=== PATIENT | female | born 1980 | race Caucasian/White ===

== ENCOUNTER 2021-04-10 13:29 | Emergency (ER) | payer OTHER, SELFPAY ==
[2021-04-10 13:46] VITALS: BP 144/78; PULSE 79; RESP 14; TEMP 36.6; O2SAT 98
--- NOTE | 2021-04-10 14:04 | ED.URI ---
HPI - URI/Sore Throat General Chief Complaint: Upper Respiratory Infection Stated Complaint: Chest Congestion Source: patient Mode of arrival: ambulatory Limitations: no limitations History of Present Illness HPI Narrative: Patient is a 41-year-old female who presents with upper respiratory infection x3+ weeks. Patient reports Covid tested 4 times, with PCR negative this afternoon. She reports cough and congestion. She reports prednisone times 5 days x 2. With little relief she denies shortness of breath or chest pain. She denies exposure to Covid. Reports son and mother tested for Covid earlier in the week and negative as well. Reports a history of asthma. MD elicited complaint: cough and nasal congestion Pertinent past history: pneumonia Related Data Home Medications Medication Instructions Recorded Confirmed spironolactone 50 mg PO DAILY 04/10/21 04/10/21 zonisamide 50 mg PO BID 04/10/21 04/10/21 Allergies Allergy/AdvReac Type Severity Reaction Status Date / Time amoxicillin Allergy Swelling Verified 04/10/21 13:58 of Lip/Tongue/Throat Penicillins Allergy Swelling Verified 04/10/21 13:58 of Lip/Tongue/Throat Review of Systems Review of Systems: CONSTITUTIONAL: Denies fever, chills, or sweats. EYES: Denies visual changes, redness, or discharge. ENT: Reports rhinorrhea, congestion, sore throat, or otalgia. CARDIOVASCULAR: Denies chest pain, palpitations, or edema. RESPIRATORY: Reports cough or dyspnea. GASTROINTESTINAL: Denies abdominal pain, nausea, vomiting, or diarrhea. GENITOURINARY: Denies dysuria or hematuria. SKIN: Denies rash or itching. MUSCULOSKELETAL: Denies back pain, joint pain, or myalgia. NEUROLOGIC: Reports headache, denies numbness, dizziness, or weakness. PSYCHIATRIC: Denies anxiety or depression. [facility] Past Medical History Medical History (Updated 04/10/21 @ 14:26 by VICENTE Bailey) Asthma Comments At the time of signature, I have reviewed and agree with nursing past medical, surgical, social, and family history unless otherwise noted. Please see nursing chart for further information. There is no relevant family history pertinent to the presenting complaint. Exam Narrative: GENERAL: Well-appearing, well-nourished, and in no acute distress. HEAD: Normocephalic, atraumatic. EYES: EOMI. No redness or drainage. Conjunctiva are normal. ENT: Mucous membranes pink and moist. Nares clear. No rhinorrhea. TMs normal bilaterally. Throat normal. Uvula midline. NECK: AROM. Supple. No lymphadenopathy. CHEST: No respiratory distress. Expiratory wheezes noted. HEART: Regular rate and rhythm. No murmur appreciated. Normal peripheral pulses. EXTREMITIES: Normal range of motion. No edema. SKIN: Warm, dry, no rash. NEURO: No focal deficits. Alert and oriented x3. Gait steady. PSYCH: Normal affect. No signs of depression or anxiety. Course Vital Signs Vital signs: Vital Signs Temperature 36.6 C 04/10/21 13:46 Pulse Rate 79 04/10/21 13:46 Respiratory Rate 14 04/10/21 13:46 Blood Pressure 144/78 H 04/10/21 13:46 Pulse Oximetry 98 04/10/21 13:46 Temperature 36.6 C 04/10/21 13:46 Pulse Rate 79 04/10/21 13:46 Respiratory Rate 14 04/10/21 13:46 Blood Pressure 144/78 H 04/10/21 13:46 Pulse Oximetry 98 04/10/21 13:46 Reviewed-patient is informed that they may have pre-hypertension or hypertension based on a blood pressure reading. I recommend the patient call the primary care provider listed on their discharge instructions or a physician of their choice this week to arrange follow-up for further evaluation of possible pre-hypertension or hypertension. MDM - URI/Sore Throat MDM Narrative Medical decision making narrative: Patient most likely has bronchitis at this time. Covid testing negative x4. Patient be started on antibiotics as well as inhaler. Discussed use of steroids, however, patient has recently been on steroids x2 manuel
[2021-04-10] MEDS: methylPREDNISolone SOD SUCC 125 MG VIAL IM (14:13)
== END 2021-04-10 14:42 | disposition home or self-care (01) ==
PROVIDERS: Emergency Provider Nurse Practitioner
DX: J40 Bronchitis, not specified as acute or chronic (principal); J06.9 Acute upper respiratory infection, unspecified; J45.909 Unspecified asthma, uncomplicated
CPT/HCPCS: 96372; 99213; G0463; J2930

== ENCOUNTER 2021-08-18 15:19 | Emergency (ER) | payer OTHER, SELFPAY ==
--- NOTE | ~2021-08-18 | XR_ITS ---
EXAMINATION: XR foot LT min 3V DATE: 08/18/2021 15:59 INDICATION: Left foot injury and pain. TECHNIQUE: 4 views of left foot were obtained. COMPARISON: None. FINDINGS: Bone alignment is normal. No fracture. There is mild osteoarthritis of first metatarsophala ngeal joint. IMPRESSION: 1. Mild osteoarthritis of first metatarsophalangeal joint. Reviewed, dictated and finalized at location A.
[2021-08-18 15:35] VITALS: BP 124/56; PULSE 77; RESP 16; TEMP 37.4; O2SAT 99
--- NOTE | 2021-08-18 15:43 | ED.LOWEXIN ---
HPI - Extremity Injury (Lower) General Chief Complaint: Extremity Injury, Lower Stated Complaint: left foot pain Time Seen by Provider: 08/18/21 16:03 Source: patient and RN notes reviewed Mode of arrival: ambulatory Limitations: no limitations History of Present Illness HPI Narrative: 41-year-old female presents concern for left foot pain. She reports pain, bump to the dorsal aspect of the foot, she reports heel pain. She reports pain is very bad in the morning or when she has not been on the foot for a while. She reports she may have twisted the foot but denies any significant injury. She reports pain is worse with weightbearing. She reports she has been using a sleeve, elevation with mild relief. MD complaint: foot injury Related Data Home Medications Medication Instructions Recorded Confirmed spironolactone 50 mg PO DAILY 04/10/21 08/18/21 zonisamide 50 mg PO BID 04/10/21 08/18/21 Allergies Allergy/AdvReac Type Severity Reaction Status Date / Time amoxicillin Allergy Swelling Verified 04/10/21 13:58 of Lip/Tongue/Throat clavulanic acid Allergy Swelling Verified 08/18/21 15:42 [From Augmentin] latex Allergy Rash Verified 08/18/21 15:45 Penicillins Allergy Swelling Verified 04/10/21 13:58 of Lip/Tongue/Throat shellfish derived Allergy Anaphylactic Verified 08/18/21 15:45 Shock walnuts Allergy Swelling Uncoded 08/18/21 15:45 of Lip/Tongue/Throat Review of Systems Review of Systems: CONSTITUTIONAL: Denies malaise, chills, sweats, or fever. SKIN: Denies rash or itching, open skin, laceration, abrasion, redness, warmth, swelling. MUSCULOSKELETAL: Reports left foot pain NEUROLOGIC: Denies numbness, weakness All systems reviewed & are unremarkable except as noted in HPI and below PMFSH Past Medical History Medical History (Updated 08/18/21 @ 16:13 by Janae Prather NP) Asthma Comments At time of signature, agree with nursing past medical, surgical, social and family history. There is no relevant family history pertinent to the presenting complaint Exam Narrative: GENERAL: Well-appearing, well-nourished, and in no acute distress. HEAD: Normocephalic, atraumatic. EYES: PERRLA, conjunctivae clear NECK: Supple. CHEST: Speaks in full sentences. No respiratory distress. HEART: Regular rate and rhythm. Normal and equal peripheral pulses. EXTREMITIES: Left foot, digits have normal strength and sensation, normal range of motion. No generalized edema or ecchymosis. Normal sensation with sensitivity to light touch and pain. Palpable tender soft nodule noted the dorsal aspect of the foot beneath digits 4 and 5. No open wounds, no skin tenting, no devitalized tissue or atrophy, no trophic changes, no obvious deformity, alignment normal, nearby joints and structures intact. Distal pulses palpable and equal bilaterally, skin warm, dry, pink. Capillary refill less than 3 seconds. SKIN: Warm, dry, no rash. NEURO: Alert and oriented x3. PSYCH: Normal mood and affect Course Course Emergency Course: Patient is aware of diagnosis, understands and agrees to treatment plan. Anticipatory guidance given. Patient agrees to follow-up as directed and is aware of reasons to seek care at the emergency department. Portions of this record may have been created with voice recognition software Level of Care: Express Care Visit Vital Signs Vital signs: Reviewed. MDM - Extremity Injury (Lower) MDM Narrative Medical decision making narrative: Patients pain is consistent with musculoskeletal etiology. No signs of neurological or vascular compromise on exam. Compartments and tissues are soft without signs of compartment syndrome. Pain is felt appropriate for further evaluation on an outpatient basis. Critical Care Time Critical Care Time Critical Care Time: No Discharge Plan Discharge Clinical Impression: Foot pain Qualifiers: Laterality: left Qualified Code(s): M79.672 - Pain in left
== END 2021-08-18 16:20 | disposition home or self-care (01) ==
PROVIDERS: Emergency Provider Nurse Practitioner; PCP Nurse Practitioner Family
DX: M79.672 Pain in left foot (principal); J45.909 Unspecified asthma, uncomplicated
CPT/HCPCS: 73630; 99213; G0463

== ENCOUNTER 2021-11-03 10:36 | Emergency (ER) | payer OTHER, SELFPAY ==
--- NOTE | 2021-11-03 10:41 | ED.URI ---
HPI - URI/Sore Throat General Chief Complaint: Upper Respiratory Infection Stated Complaint: asthma/bronchitis flair up Time Seen by Provider: 11/03/21 10:42 Source: patient and RN notes reviewed History of Present Illness HPI Narrative: Patient is a 41-year-old female who presents the urgent care with complaints of an asthma flare. Patient states that her asthma has been bad for the last week however the last day and a half she has been unable to control the coughing, wheezing and tightness. Patient denies of any chest pain. States that she does have a history of bronchitis. Patient has not taken any nebulizer since last night because she wanted us to see how bad she was . Patient has been using her inhaler more frequently than usual. Denies of any fevers, nausea, vomiting. States that she has had a slight runny nose but otherwise no other upper respiratory complaints. No acute distress noted. Patient aware of the plan of care. Some parts of this dictation were generated by voice recognition software and may contain typographical and/or grammatical inaccuracies. Related Data Home Medications Medication Instructions Recorded Confirmed spironolactone 50 mg tablet 50 mg PO DAILY 04/10/21 11/03/21 zonisamide 50 mg capsule 50 mg PO BID 04/10/21 11/03/21 ibuprofen 600 mg tablet 600 mg PO TID PRN Pain 11/03/21 11/03/21 pregabalin 50 mg capsule 50 mg PO DAILY 11/03/21 11/03/21 Allergies Allergy/AdvReac Type Severity Reaction Status Date / Time amoxicillin Allergy Swelling Verified 11/03/21 10:50 of Lip/Tongue/Throat clavulanic acid Allergy Swelling Verified 11/03/21 10:50 [From Augmentin] latex Allergy Rash Verified 11/03/21 10:50 Penicillins Allergy Swelling Verified 11/03/21 10:50 of Lip/Tongue/Throat shellfish derived Allergy Anaphylactic Verified 11/03/21 10:50 Shock walnuts Allergy Swelling Uncoded 11/03/21 10:50 of Lip/Tongue/Throat Review of Systems Review of Systems: CONSTITUTIONAL: Denies fever, chills, or sweats. EYES: Denies visual changes, redness, or discharge. ENT: Denies congestion, sore throat, or otalgia. Reports of rhinorrhea CARDIOVASCULAR: Denies chest pain, palpitations, or edema. RESPIRATORY: Reports of cough, wheezing, dyspnea and tightness GASTROINTESTINAL: Denies abdominal pain, nausea, vomiting, or diarrhea. GENITOURINARY: Denies dysuria or hematuria. SKIN: Denies rash or itching. MUSCULOSKELETAL: Denies back pain, joint pain, or myalgia. NEUROLOGIC: Denies headache, numbness, or weakness. All other systems reviewed are negative, except as documented in HPI. [facility] Past Medical History Medical History (Updated 11/03/21 @ 11:17 by VICENTE Sandhu) Asthma Comments At the time of my signature, I reviewed and agree with the nursing past medical, surgical, social, and family history. There is no relevant family history pertinent to the patient complaint. Exam Narrative: GENERAL: This is a well-nourished, well-developed patient, in no apparent distress. HEAD: normocephalic, atraumatic. EYES: PERRL. Sclera clear/white. Vision is grossly intact. EARS: External ears normal, auditory canals clear and without drainage, TMs normal without perforation. Hearing grossly intact. NOSE: External nose normal with no obvious nasal discharge, nares without redness, clear rhinorrhea. THROAT: Mucous membranes moist, posterior pharynx clear. Moderate postnasal drainage NECK: Neck supple CARDIOVASCULAR: Regular rate and rhythm without murmurs, gallops, or rubs. RESPIRATORY: Harsh dry cough noted on exam with inspiratory and expiratory wheezes throughout. SKIN: warm, intact with no suspicious lesions or rash, good texture and turgor. NEURO: awake, alert, and oriented to person, place and time. There were no obvious focal neurologic abnormalities. EXTREMITIES: No clubbing, cyanosis, or edema. Course Course Level of Care: Express Care Visit Vital Signs
[2021-11-03 10:47] VITALS: BP 154/84; PULSE 72; RESP 20; TEMP 36.6; O2SAT 98
[2021-11-03] MEDS: predniSONE 20 MG TABLET 60 MG PO (11:07)
[2021-11-03] MEDS: IPRATROPIUM BR 0.02% INH SOLN 0.5 MG/2.5 ML VIAL INHALATION (11:08)
[2021-11-03] MEDS: ALBUTEROL SULFATE NEB 2.5 MG/3 ML INH INHALATION (11:08)
== END 2021-11-03 11:30 | disposition home or self-care (01) ==
PROVIDERS: Emergency Provider Nurse Practitioner Family; PCP Nurse Practitioner Family
DX: J45.20 Mild intermittent asthma, uncomplicated (principal); Z85.820 Personal history of malignant melanoma of skin; Z95.820 Peripheral vascular angioplasty status with implants and grafts
CPT/HCPCS: 94640; 99213; G0463; J7512

== ENCOUNTER 2021-12-18 12:42 | Emergency (ER) | payer OTHER, SELFPAY ==
[2021-12-18 12:46] VITALS: BP 149/92; PULSE 82; RESP 20; TEMP 36.8; O2SAT 100
--- NOTE | 2021-12-18 13:19 | ED.GENADULT ---
HPI - General Adult General Chief complaint: Ear Stated complaint: Ear Pain Source: patient Mode of arrival: ambulatory Limitations: no limitations History of Present Illness HPI narrative: Patient presents for evaluation of sinus symptoms and left-sided ear pain. She has had sinus symptoms for the last 2 weeks. Symptoms include sinus congestion, thick yellow drainage. Over the last 3 to 4 days she experienced pain in her left ear. She reports some hydrogen peroxide in her ear and later developed pain behind her ear. She denies any tinnitus or hearing loss. No fever, chills, shortness of breath or cough. No recent sick contacts. She does smoke under a pack per day. She had COVID in 2020. 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 She states she had pressures checked a few weeks ago and were normal. Related Data Home Medications Medication Instructions Recorded Confirmed spironolactone 50 mg tablet 50 mg PO DAILY 04/10/21 12/18/21 zonisamide 50 mg capsule 50 mg PO BID 04/10/21 12/18/21 pregabalin 50 mg capsule 50 mg PO DAILY 11/03/21 12/18/21 Allergies Allergy/AdvReac Type Severity Reaction Status Date / Time amoxicillin Allergy Swelling Verified 12/18/21 12:52 of Lip/Tongue/Throat clavulanic acid Allergy Swelling Verified 12/18/21 12:52 [From Augmentin] latex Allergy Rash Verified 12/18/21 12:52 Penicillins Allergy Swelling Verified 12/18/21 12:52 of Lip/Tongue/Throat shellfish derived Allergy Anaphylactic Verified 12/18/21 12:52 Shock Review of Systems Review of Systems: CONSTITUTIONAL: Denies fever, chills, or sweats. EYES: Denies visual changes, redness, or discharge. ENT: Reports sinus congestion, drainage, left-sided ear pain. Denies tinnitus and hearing loss. CARDIOVASCULAR: Denies chest pain, palpitations, or edema. RESPIRATORY: Denies cough or dyspnea. GASTROINTESTINAL: Denies abdominal pain, nausea, vomiting, or diarrhea. GENITOURINARY: Denies dysuria or hematuria. SKIN: Denies rash or itching. MUSCULOSKELETAL: Denies back pain, joint pain, or myalgia. NEUROLOGIC: Denies headache, numbness, dizziness, or weakness. PSYCHIATRIC: Denies anxiety or depression. [facility] Past Medical History Medical History Asthma Surgical History Surgical History No pertinent past surgical history Family History Family History Mother Family history non-contributory Social History Social History Smoking packs per day: 0.75 Smoking cigarettes per day: 15.0 Smoking status: Current every day smoker Substance use: never Living arrangements: with family Gender identity (if verbalized by the patient): Female Sexual Orientation (if Verbalized by the Patient): Straight or Heterosexual Spiritual care concerns: No Exam Narrative: GENERAL: Well-appearing, well-nourished, and in no acute distress. HEAD: Normocephalic, atraumatic. EYES: PERRLA and EOMI. ENT: Nares clear, no rhinorrhea or epistaxis. Mucous membranes moist. Oropharynx without tonsillar hypertrophy exudate or other lesions. Left TM erythema and middle ear fluid present. Bilateral maxillary and frontal sinus tenderness NECK: Supple. No adenopathy or masses. No carotid bruits or JVD CHEST: Clear to auscultation. No respiratory distress. No wheezes rales or rhonchi HEART: Regular rate and rhythm. No murmur heard. Normal peripheral pulses. ABDOMEN: Soft, nontender, nondistended, normal active bowel sounds. EXTREMITIES: Normal range of motion. No edema. SKIN: Warm, dry, no rash. NEURO: No focal deficits. Alert and oriented x3. PSYCH: Normal mood and affect. Course Course Emergency Course: This is a 41-year-old female who presented for evaluat
== END 2021-12-18 13:17 | disposition home or self-care (01) ==
PROVIDERS: Emergency Provider Nurse Practitioner; PCP Nurse Practitioner Family
DX: J32.9 Chronic sinusitis, unspecified (principal); H69.82 Other specified disorders of Eustachian tube, left ear; J45.909 Unspecified asthma, uncomplicated
CPT/HCPCS: 99213; G0463

== ENCOUNTER 2022-01-08 09:11 | Emergency (ER) | payer OTHER, SELFPAY ==
[2022-01-08 09:15] VITALS: BP 162/80; PULSE 103; RESP 16; TEMP 36.3; O2SAT 98
--- NOTE | 2022-01-08 09:18 | ED.URI ---
HPI - URI/Sore Throat General Chief Complaint: Upper Respiratory Infection Stated Complaint: throat stuffy nose wheezing Time Seen by Provider: 01/08/22 09:22 Source: patient Mode of arrival: ambulatory Limitations: no limitations History of Present Illness HPI Narrative: Ms. Arenas is a 41-year-old female patient presenting to the clinic today with complaints of sore throat, cough, chills, body aches, stuffy nose, and wheezing x3-4 days. She reports no fever or chills. Has had positive exposure to someone with COVID. Has a history of asthma and she is a current smoker. She reports that she is coughing up some brown mucus. States that after using her inhaler she feels gurgling. States she is only short of breath when she has to go up with her 3 steps in her [place] home. MD elicited complaint: sore throat, nasal congestion and other (Wheezing) Related Data Home Medications Medication Instructions Recorded Confirmed spironolactone 50 mg tablet 50 mg PO DAILY 04/10/21 12/18/21 zonisamide 50 mg capsule 50 mg PO BID 04/10/21 12/18/21 pregabalin 50 mg capsule 50 mg PO DAILY 11/03/21 12/18/21 Allergies Allergy/AdvReac Type Severity Reaction Status Date / Time amoxicillin Allergy Severe Swelling Verified 01/08/22 09:29 of Lip/Tongue/Throat clavulanic acid Allergy Severe Swelling Verified 01/08/22 09:29 [From Augmentin] Penicillins Allergy Severe Swelling Verified 01/08/22 09:29 of Lip/Tongue/Throat shellfish derived Allergy Severe Anaphylactic Verified 01/08/22 09:29 Shock latex Allergy Intermediate Rash Verified 01/08/22 09:29 Review of Systems Review of Systems: Pertinent positives per HPI. Patient denies any fever, rash, headache, visual changes, dizziness, chest pain, palpitations, nausea, vomiting, diarrhea, constipation, abdominal pain, or any urinary issues. PMFSH Past Medical History Medical History Asthma Surgical History Surgical History No pertinent past surgical history Family History Family History Mother Family history non-contributory Social History Social History Smoking packs per day: 0.75 Smoking cigarettes per day: 15.0 Smoking status: Current every day smoker Substance use: never Gender identity (if verbalized by the patient): Female Sexual Orientation (if Verbalized by the Patient): Straight or Heterosexual Spiritual care concerns: No Comments At the time of my signature, I reviewed and agree with the nursing past medical, surgical, social, and family history. There is no relevant family history pertinent to the patient complaint. Exam Narrative: General: Well-developed, well nourished, in no apparent distress Head: Normocephalic, atraumatic Eyes: Pupils equally round and reactive to light bilaterally, EOM intact, sclera and conjunctive clear, no discharge, lids normal Ears: TMs intact and clear, ear canals clear, no drainage, grossly hearing normal. Nose: Nares patent, no discharge, no inflammation, no sinus tenderness. Mouth: Oral pharynx without lesions or masses, good dentition, MMM. Neck: Supple, trachea midline, no enlargement of anterior or posterior cervical nodes, no thyroid masses or goiter palpable. Cardio: Regular rate and rhythm, s1 and s2 normal, no murmur appreciated. Resp: Clear to auscultation bilaterally, no rhonchi, rales, wheezing or rubs Course Course Emergency Course: Portions of this record may have been created with voice recognition software. Level of Care: Express Care Visit Vital Signs Vital signs: Vital signs reviewed MDM - URI/Sore Throat MDM Narrative Medical decision making narrative: At the time of visit patient is resting comfortably on the ex
[2022-01-08 19:25] LABS: SARS-CoV-2 RNA PCR Negative
== END 2022-01-08 09:45 | disposition home or self-care (01) ==
PROVIDERS: Emergency Provider Nurse Practitioner Family; PCP Nurse Practitioner Family
DX: J40 Bronchitis, not specified as acute or chronic (principal); H69.83 Other specified disorders of Eustachian tube, bilateral; F17.210 Nicotine dependence, cigarettes, uncomplicated; Z20.822 Contact with and (suspected) exposure to COVID-19
CPT/HCPCS: 87426; 99213; C9803; G0463; U0003; U0005

== ENCOUNTER 2022-01-12 18:17 | Emergency (ER) | payer OTHER, SELFPAY ==
[2022-01-12 18:25] VITALS: BP 120/78; PULSE 73; RESP 20; TEMP 36.9; O2SAT 98
--- NOTE | 2022-01-12 18:29 | ED.URI ---
HPI - URI/Sore Throat General Chief Complaint: Upper Respiratory Infection Stated Complaint: Congested Time Seen by Provider: 01/12/22 18:35 Source: patient, RN notes reviewed and old records reviewed Mode of arrival: ambulatory Limitations: no limitations History of Present Illness HPI Narrative: 41-year-old female who presents to [facility] care with complaints of continued cough with wheezing and some shortness of breath, finished her steroid and just doesn't feel like she is getting better. Patient reports that she has used her nebulizer as ordered did a treatment before coming to clinic with scattered wheezes noted throughout lung ly. Patient continues to have productive cough with some dyspnea noted with minimal exertion and cough. Patient has history of asthma. MD elicited complaint: cough and other (congestion, wheezing and some SOB) Pertinent past history: asthma Pain scale (0-10): 4 Treatments prior to arrival: other (steroids completed today has nebulizer) Related Data Home Medications Medication Instructions Recorded Confirmed zonisamide 50 mg capsule 50 mg PO BID 04/10/21 01/12/22 pregabalin 50 mg capsule 50 mg PO DAILY 11/03/21 01/12/22 spironolactone 100 mg tablet 100 mg PO DAILY 01/08/22 01/12/22 Allergies Allergy/AdvReac Type Severity Reaction Status Date / Time amoxicillin Allergy Severe Swelling Verified 01/12/22 18:32 of Lip/Tongue/Throat clavulanic acid Allergy Severe Swelling Verified 01/12/22 18:32 [From Augmentin] Penicillins Allergy Severe Swelling Verified 01/12/22 18:32 of Lip/Tongue/Throat shellfish derived Allergy Severe Anaphylactic Verified 01/12/22 18:32 Shock latex Allergy Intermediate Rash Verified 01/12/22 18:32 Review of Systems Review of Systems: CONSTITUTIONAL: Denies fever, chills, or sweats. EYES: Denies visual changes, redness, or discharge. ENT: positive for rhinorrhea, congestion,no sore throat, or otalgia. CARDIOVASCULAR: Denies chest pain, palpitations, or edema. RESPIRATORY: Positive for cough or dyspnea wit exertion GASTROINTESTINAL: Denies abdominal pain, nausea, vomiting, or diarrhea. GENITOURINARY: Denies dysuria or hematuria. SKIN: Denies rash or itching. MUSCULOSKELETAL: Denies back pain, joint pain, or myalgia. NEUROLOGIC: Denies headache, numbness, or weakness. PSYCHIATRIC: Denies anxiety or depression. All systems reviewed & are unremarkable except as noted in HPI and below PMFSH Past Medical History Medical History Asthma Surgical History Surgical History No pertinent past surgical history Family History Family History Mother Family history non-contributory Social History Social History Smoking packs per day: 0.75 Smoking cigarettes per day: 15.0 Smoking status: Current every day smoker Substance use: never Gender identity (if verbalized by the patient): Female Sexual Orientation (if Verbalized by the Patient): Straight or Heterosexual Spiritual care concerns: No Comments At time of signature, agree with nursing past medical, surgical, social and family history. There is no relevant family history pertinent to the presenting complaint Exam Narrative: GENERAL: Well-appearing, well-nourished, and in no acute distress. HEAD: Normocephalic, atraumatic. EYES: PERRLA and EOMI. ENT: Nares clear, no rhinorrhea or epistaxis. Mucous membranes moist. NECK: Supple.no lymphadenopathy CHEST: Scattered wheezing on auscultation, No respiratory distress.SAO2 98% on room air HEART: Regular rate and rhythm. No murmur heard. Normal peripheral pulses. ABDOMEN: Soft, nontender, nondistended, normal active bowel sounds. EXTREMITIES: Normal range of motion. No edema. SKIN: Warm, dry, no rash. NEURO: No focal
[2022-01-12] MEDS: methylPREDNISolone ACETATE 80 MG/ML VIAL IM (18:50)
== END 2022-01-12 19:27 | disposition home or self-care (01) ==
PROVIDERS: Emergency Provider Registered Nurse; PCP Nurse Practitioner Family
DX: J45.41 Moderate persistent asthma with (acute) exacerbation (principal)
CPT/HCPCS: 96372; 99213; G0463; J1040

== ENCOUNTER 2022-03-10 17:26 | Emergency (ER) | payer OTHER, SELFPAY ==
--- NOTE | ~2022-03-10 | XR_ITS ---
XR chest 2V DATE: 03/10/2022 18:07 INDICATION: Wheezing, cough TECHNIQUE: 2 views COMPARISON: None FINDINGS: Normal heart size. No hilar or mediastinal enlargement. No pulmonary infiltrate or consolid ation, pleural effusion or pulmonary vascular congestion or pneumothorax. IMPRESSION: No active cardiopulmonary disease Reviewed, dictated and finalized at location A.
[2022-03-10 17:31] VITALS: BP 142/72; PULSE 75; RESP 16; TEMP 36.4; O2SAT 99
--- NOTE | 2022-03-10 17:52 | ED.URI ---
HPI - URI/Sore Throat General Chief Complaint: Upper Respiratory Infection Stated Complaint: chills headache aches congestion Time Seen by Provider: 03/10/22 17:52 Source: patient, RN notes reviewed and old records reviewed Mode of arrival: ambulatory Limitations: no limitations History of Present Illness HPI Narrative: 42-year-old female presents to the [facility] with complaints of headache, chills, body aches and congestion for 5 days. 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 Concern for influenza a or pneumonia. Related Data Home Medications Medication Instructions Recorded Confirmed zonisamide 50 mg capsule 50 mg PO BID 04/10/21 03/10/22 pregabalin 50 mg capsule 50 mg PO DAILY 11/03/21 03/10/22 spironolactone 100 mg tablet 100 mg PO DAILY 01/08/22 03/10/22 albuterol sulfate 2.5 mg/3 mL See Rx Instructions .Route 03/10/22 03/10/22 (0.083 %) solution for nebulization .COMPLEX PRN SOB Allergies Allergy/AdvReac Type Severity Reaction Status Date / Time amoxicillin Allergy Severe Swelling Verified 03/10/22 18:08 of Lip/Tongue/Throat clavulanic acid Allergy Severe Swelling Verified 03/10/22 18:08 [From Augmentin] Penicillins Allergy Severe Swelling Verified 03/10/22 18:08 of Lip/Tongue/Throat shellfish derived Allergy Severe Anaphylactic Verified 03/10/22 18:08 Shock latex Allergy Intermediate Rash Verified 03/10/22 18:08 Review of Systems Review of Systems: All systems reviewed & are unremarkable except as noted in HPI and below Constitutional: Constitutional: Reports as per HPI, Denies chills and Reports fever(s) Eyes: Eyes: Reports no additional eye complaints ENT: Reports system reviewed and no additional complaints, except as documented Cardiovascular: Cardiovascular: Reports no additional cardiovascular complaints Respiratory: Respiratory: Reports as per HPI, Reports chest congestion and Reports cough Gastrointestinal: Gastrointestinal: Reports no additional gastrointestinal complaints Musculoskeletal: Musculoskeletal: Reports no additional musculoskeletal complaints Integumentary/Breasts: Skin/Breast: Reports system reviewed and no additional complaints, except as docu Neurologic: Reports system reviewed and no additional complaints, except as documented Psychiatric: Psychiatric: Reports no additional psychiatric complaints Allergic/Immunologic: Allergic/Immunologic: Reports no additional allergic/immunologic complaints PMFSH Past Medical History Medical History Asthma Surgical History Surgical History No pertinent past surgical history Family History Family History Mother Family history non-contributory Social History Social History Smoking packs per day: 0.75 Smoking cigarettes per day: 15.0 Smoking status: Current every day smoker Substance use: never Gender identity (if verbalized by the patient): Female Sexual Orientation (if Verbalized by the Patient): Straight or Heterosexual Spiritual care concerns: No Comments At the time of my signature, I reviewed and agree with the nursing past medical, surgical, social, and family history. There is no relevant family history pertinent to the patient complaint. Exam Const: General: healthy appearing, no acute distress, alert and well nourished Nutritional Appearance: well nourished and obese morbidly obese Orientation/consciousness: patient oriented x3 Limitations: no limitations HENMT: Head: normal to inspection Ears: external ears normal, TM's normal bilaterally and EAC's normal Face/Nose/Sinus: Normal external nose present and Normal nares present Face and sinus: normal facial exam Mouth: Yes Normal oral and palatal mucosa present, Yes lip normal and Yes moist mucous membranes Thr
== END 2022-03-10 18:30 | disposition home or self-care (01) ==
PROVIDERS: Emergency Provider Nurse Practitioner; PCP Nurse Practitioner Family
DX: U07.1 COVID-19 (principal); F17.210 Nicotine dependence, cigarettes, uncomplicated; J45.909 Unspecified asthma, uncomplicated
CPT/HCPCS: 71046; 87426; 87804; 99213; C9803; G0463

== ENCOUNTER 2022-12-01 17:35 | Emergency (ER) | payer OTHER, SELFPAY ==
[2022-12-01 17:45] VITALS: BP 156/94; PULSE 88; RESP 18; TEMP 36.4; O2SAT 98
--- NOTE | 2022-12-01 17:51 | ED.URI ---
HPI - URI/Sore Throat General Chief Complaint: Upper Respiratory Infection Stated Complaint: Asthma Problems Time Seen by Provider: 12/01/22 18:10 Source: patient and RN notes reviewed Mode of arrival: ambulatory Limitations: no limitations History of Present Illness HPI Narrative: 42-year-old female presents with concern for asthma exacerbation. She reports today she started having shortness of breath and wheezing. She reports her doctor sent her for an x-ray, she does not have the report yet. She reports he also start her on a Z-Manuel for which she is on day 2. She reports she used her nebulizer about an hour ago without relief. She reports she is almost out of her nebulizer and her albuterol inhaler. She denies fever, aches, chills, sweats MD elicited complaint: cough Related Data Home Medications Medication Instructions Recorded Confirmed zonisamide 50 mg capsule 50 mg PO BID 04/10/21 12/01/22 pregabalin 50 mg capsule 50 mg PO DAILY 11/03/21 12/01/22 spironolactone 100 mg tablet 100 mg PO DAILY 01/08/22 12/01/22 albuterol sulfate 2.5 mg/3 mL See Rx Instructions .Route 03/10/22 12/01/22 (0.083 %) solution for nebulization .COMPLEX PRN SOB lisinopril 10 mg tablet mg 12/01/22 Allergies Allergy/AdvReac Type Severity Reaction Status Date / Time amoxicillin Allergy Severe Swelling Verified 03/10/22 18:08 of Lip/Tongue/Throat clavulanic acid Allergy Severe Swelling Verified 03/10/22 18:08 [From Augmentin] Penicillins Allergy Severe Swelling Verified 03/10/22 18:08 of Lip/Tongue/Throat shellfish derived Allergy Severe Anaphylactic Verified 03/10/22 18:08 Shock latex Allergy Intermediate Rash Verified 03/10/22 18:08 Review of Systems Review of Systems: CONSTITUTIONAL: Denies malaise, chills, sweats, or fever. EYES: Denies visual changes, redness, or discharge. ENT: Denies rhinorrhea, congestion, sinus pain, otalgia and sore throat. CARDIOVASCULAR: Denies chest pain, palpitations, or edema. RESPIRATORY: Reports cough, dyspnea. GASTROINTESTINAL: Denies abdominal pain, nausea, vomiting, diarrhea SKIN: Denies rash or itching. MUSCULOSKELETAL: Denies myalgia. NEUROLOGIC: Denies headache. All systems reviewed & are unremarkable except as noted in HPI and below PMFSH Past Medical History Medical History Asthma Surgical History Surgical History No pertinent past surgical history Family History Family History Mother Family history non-contributory Social History Social History Smoking packs per day: 0.75 Smoking cigarettes per day: 15.0 Smoking status: Current every day smoker Substance use: never Living arrangements: with family Gender identity (if verbalized by the patient): Female Sexual Orientation (if Verbalized by the Patient): Straight or Heterosexual Spiritual care concerns: No Comments At time of signature, agree with nursing past medical, surgical, social and family history. There is no relevant family history pertinent to the presenting complaint Exam Narrative: GENERAL: Well-appearing, well-nourished, and in no acute distress. HEAD: Normocephalic EYES: PERRLA, conjunctivae clear ENT: Nares clear. Mucous membranes moist. NECK: Supple. No lymphadenopathy CHEST: Scattered expiratory wheeze, otherwise clear, breath sounds equal. No rhonchi, rales, or stridor. No respiratory distress, speaks in full sentences. HEART: Regular rate and rhythm. No murmur heard. SKIN: Warm, dry, no rash. NEURO: Alert and oriented x3. PSYCH: Normal mood and affect Course Course Emergency Course: Patient is aware of diagnosis, understands and agrees to treatment plan. Anticipatory guidance given. Patient agrees to follow-up as directed and is aware
== END 2022-12-01 18:21 | disposition home or self-care (01) ==
PROVIDERS: Emergency Provider Nurse Practitioner
DX: J45.901 Unspecified asthma with (acute) exacerbation (principal); F17.210 Nicotine dependence, cigarettes, uncomplicated
CPT/HCPCS: 99213; G0463

== ENCOUNTER 2023-04-25 17:03 | Emergency (ER) | payer OTHER, SELFPAY ==
--- NOTE | 2023-04-25 17:10 | ED.URI ---
HPI - URI/Sore Throat General Chief Complaint: Upper Respiratory Infection Stated Complaint: poss bronchitis/thrush Time Seen by Provider: 04/25/23 17:25 Source: patient and RN notes reviewed Mode of arrival: ambulatory Limitations: no limitations History of Present Illness HPI Narrative: 43-year-old female presents concern for worsening cough, shortness of breath. She also reports she has had a white hairy coating on her tongue. Reports she has history of thrush and this feels like thrush. 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 She reports she has been wheezing more than usual, she has been using her inhaler and nebulizer, she used her nebulizer before work this morning and also has used her inhaler throughout the day at work. MD elicited complaint: cough Related Data Home Medications Medication Instructions Recorded Confirmed zonisamide 50 mg capsule 50 mg PO BID 04/10/21 12/01/22 pregabalin 50 mg capsule 50 mg PO DAILY 11/03/21 04/25/23 spironolactone 100 mg tablet 100 mg PO DAILY 01/08/22 04/25/23 lisinopril 10 mg tablet 10 mg PO DIRECTED 12/01/22 04/25/23 doxycycline hyclate 100 mg capsule 100 mg PO DIRECTED 04/25/23 04/25/23 Allergies Allergy/AdvReac Type Severity Reaction Status Date / Time amoxicillin Allergy Severe Swelling Verified 04/25/23 17:23 of Lip/Tongue/Throat clavulanic acid Allergy Severe Swelling Verified 04/25/23 17:23 [From Augmentin] Penicillins Allergy Severe Swelling Verified 04/25/23 17:23 of Lip/Tongue/Throat shellfish derived Allergy Severe Anaphylactic Verified 04/25/23 17:23 Shock latex Allergy Intermediate Rash Verified 04/25/23 17:23 Review of Systems Review of Systems: CONSTITUTIONAL: Denies malaise, chills, sweats, or fever. EYES: Denies visual changes, redness, or discharge. ENT: Reports thick coating on her throat CARDIOVASCULAR: Denies chest pain, palpitations, or edema. RESPIRATORY: Reports cough, wheezing, dyspnea. GASTROINTESTINAL: Denies abdominal pain, nausea, vomiting, diarrhea SKIN: Denies rash or itching. MUSCULOSKELETAL: Denies myalgia. NEUROLOGIC: Denies headache. All systems reviewed & are unremarkable except as noted in HPI and below PMFSH Past Medical History Medical History Asthma Surgical History Surgical History No pertinent past surgical history Family History Family History Mother Family history non-contributory Social History Social History Smoking packs per day: 0.75 Smoking cigarettes per day: 15.0 Smoking status: Current every day smoker Substance use: never Living arrangements: with family Gender identity (if verbalized by the patient): Female Sexual Orientation (if Verbalized by the Patient): Straight or Heterosexual Spiritual care concerns: No Comments At time of signature, agree with nursing past medical, surgical, social and family history. There is no relevant family history pertinent to the presenting complaint Exam Narrative: GENERAL: Well-appearing, well-nourished, and in no acute distress. HEAD: Normocephalic EYES: PERRLA, conjunctivae clear ENT: Nares clear. Mucous membranes moist. TM pearly bradley with sharp light reflex bilaterally; no tragal tenderness. Oropharynx not erythematous without lesions. Tonsils not enlarged and without exudate, no drooling, no hoarseness, no trismus, uvula midline. NECK: Supple. No lymphadenopathy CHEST: Inspiratory and expiratory wheeze noted, breath sounds equal. No rhonchi, rales, or stridor. No respiratory distress, speaks in full sentences. HEART: Regular rate and rhythm. No murmur heard. SKIN: Warm, dry, no rash. NEURO: Alert and oriented x3. PSYCH: Normal mood and affec
[2023-04-25 17:11] VITALS: BP 143/82; PULSE 78; RESP 18; TEMP 36.6; O2SAT 99
== END 2023-04-25 17:41 | disposition home or self-care (01) ==
PROVIDERS: Emergency Provider Nurse Practitioner
DX: R06.2 Wheezing (principal); B37.0 Candidal stomatitis; F17.210 Nicotine dependence, cigarettes, uncomplicated; J45.909 Unspecified asthma, uncomplicated
CPT/HCPCS: 87081; 87880; 99213; G0463

== ENCOUNTER 2023-09-04 16:54 | Emergency (ER) | payer OTHER, SELFPAY ==
[2023-09-04 17:00] VITALS: BP 115/68; PULSE 83; RESP 20; TEMP 36.9; O2SAT 100
--- NOTE | 2023-09-04 17:49 | ED.URI ---
HPI - URI/Sore Throat General Chief Complaint: Upper Respiratory Infection Stated Complaint: cold/sinus/left foot Time Seen by Provider: 09/04/23 17:15 Source: patient, RN notes reviewed and old records reviewed Mode of arrival: ambulatory Limitations: no limitations History of Present Illness HPI Narrative: 43-[facility] to [facility] complaint of sinus pain, bilateral ear pain or pressure, eye pressure, sinus pain, for 5 days. Patient has attempted to treat at home. Tylenol cold Sinus and Sudafed with mild relief. Patient also complained of left foot pain for 6 days. 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 patient denies fever. Patient able tolerate fluids by mouth. Related Data Home Medications Medication Instructions Recorded Confirmed zonisamide 50 mg capsule 50 mg PO BID 04/10/21 09/04/23 pregabalin 50 mg capsule 50 mg PO DAILY 11/03/21 09/04/23 lisinopril 10 mg tablet 10 mg PO DIRECTED 12/01/22 09/04/23 spironolactone 50 mg tablet 50 mg PO DAILY 09/04/23 09/04/23 Allergies Allergy/AdvReac Type Severity Reaction Status Date / Time amoxicillin Allergy Severe Swelling Verified 09/04/23 17:11 of Lip/Tongue/Throat clavulanic acid Allergy Severe Swelling Verified 09/04/23 17:11 [From Augmentin] Penicillins Allergy Severe Swelling Verified 09/04/23 17:11 of Lip/Tongue/Throat shellfish derived Allergy Severe Anaphylactic Verified 09/04/23 17:11 Shock latex Allergy Intermediate Rash Verified 09/04/23 17:11 Review of Systems Review of Systems: All systems reviewed & are unremarkable except as noted in HPI and below Constitutional: Constitutional: Reports as per HPI and Reports headache(s) Eyes: Eyes: Reports as per HPI and Reports eye pain ( Pressure bilateral) ENT: Reports as per HPI, Reports nasal congestion, Reports sinus pain and Reports sinus pressure Cardiovascular: Cardiovascular: Reports no additional cardiovascular complaints, Denies chest pain and Denies dyspnea Respiratory: Respiratory: Reports no additional respiratory complaints, Denies cough and Denies dyspnea Musculoskeletal: Musculoskeletal: Reports no additional musculoskeletal complaints Neurologic: Reports system reviewed and no additional complaints, except as documented Psychiatric: Psychiatric: Reports no additional psychiatric complaints PMFSH Past Medical History Medical History Asthma Surgical History Surgical History No pertinent past surgical history Family History Family History Mother Family history non-contributory Social History Social History Smoking packs per day: 0.75 Smoking cigarettes per day: 15.0 Smoking status: Current every day smoker Substance use: never Living arrangements: with family Gender identity (if verbalized by the patient): Female Sexual Orientation (if Verbalized by the Patient): Straight or Heterosexual Spiritual care concerns: No Comments At the time of my signature, I reviewed and agree with the nursing past medical, surgical, social, and family history. There is no relevant family history pertinent to the patient complaint. Exam Const: General: cooperative, no acute distress, alert, ill appearing acutely, tired appearing, uncomfortable and well nourished Nutritional Appearance: well nourished Orientation/consciousness: patient oriented x3 Limitations: no limitations HENMT: Head: normal to inspection Ears: external ears normal Face/Nose/Sinus: Normal external nose present, Normal nares present, normal facial exam, No erythema and No edema Face and sinus: norm
== END 2023-09-04 18:10 | disposition home or self-care (01) ==
PROVIDERS: Emergency Provider Nurse Practitioner Family
DX: J32.9 Chronic sinusitis, unspecified (principal); M79.672 Pain in left foot; F17.210 Nicotine dependence, cigarettes, uncomplicated; J45.909 Unspecified asthma, uncomplicated; Z95.820 Peripheral vascular angioplasty status with implants and grafts
CPT/HCPCS: 99213; G0463

== ENCOUNTER 2024-01-08 18:41 | Emergency (ER) | payer OTHER, SELFPAY ==
[2024-01-08 19:06] VITALS: BP 93/62; PULSE 121; RESP 20; TEMP 36.4; O2SAT 100
--- NOTE | 2024-01-08 19:26 | ED.URI ---
HPI - URI/Sore Throat General Chief Complaint: Upper Respiratory Infection Stated Complaint: chest cold Time Seen by Provider: 01/08/24 19:26 Source: patient, RN notes reviewed and old records reviewed Mode of arrival: ambulatory Limitations: no limitations History of Present Illness HPI Narrative: 43-year-old female presents to the [facility] with complaints of a chest cold 5 days, started wheezing today. Has a history of asthma. Related Data Home Medications Medication Instructions Recorded Confirmed zonisamide 50 mg capsule 50 mg PO BID 04/10/21 01/08/24 pregabalin 50 mg capsule 50 mg PO DAILY 11/03/21 01/08/24 lisinopril 10 mg tablet 10 mg PO DIRECTED 12/01/22 01/08/24 spironolactone 50 mg tablet 50 mg PO DAILY 09/04/23 01/08/24 Allergies Allergy/AdvReac Type Severity Reaction Status Date / Time amoxicillin Allergy Severe Swelling Verified 01/08/24 19:10 of Lip/Tongue/Throat clavulanic acid Allergy Severe Swelling Verified 01/08/24 19:10 [From Augmentin] Penicillins Allergy Severe Swelling Verified 01/08/24 19:10 of Lip/Tongue/Throat shellfish derived Allergy Severe Anaphylactic Verified 01/08/24 19:10 Shock latex Allergy Intermediate Rash Verified 01/08/24 19:10 Review of Systems Review of Systems: All systems reviewed & are unremarkable except as noted in HPI and below Constitutional: Constitutional: Reports no additional constitutional complaints Eyes: Eyes: Reports no additional eye complaints ENT: Reports as per HPI, Reports nasal discharge, Reports post nasal drip and Reports sinus pressure Cardiovascular: Cardiovascular: Reports no additional cardiovascular complaints, Denies chest pain and Denies dyspnea Respiratory: Respiratory: Reports as per HPI, Reports chest congestion, Reports cough, Denies dyspnea and Reports wheezing Gastrointestinal: Gastrointestinal: Reports no additional gastrointestinal complaints, Denies abdominal pain, Denies nausea and Denies vomiting Musculoskeletal: Musculoskeletal: Reports no additional musculoskeletal complaints Integumentary/Breasts: Skin/Breast: Reports system reviewed and no additional complaints, except as docu Neurologic: Reports system reviewed and no additional complaints, except as documented Psychiatric: Psychiatric: Reports no additional psychiatric complaints Allergic/Immunologic: Allergic/Immunologic: Reports no additional allergic/immunologic complaints PMFSH Past Medical History Medical History Asthma Surgical History Surgical History No pertinent past surgical history Family History Family History Mother Family history non-contributory Social History Social History Smoking packs per day: 0.75 Smoking cigarettes per day: 15.0 Smoking status: Current every day smoker Substance use: never Living arrangements: with family Gender identity (if verbalized by the patient): Female Sexual Orientation (if Verbalized by the Patient): Straight or Heterosexual Spiritual care concerns: No Comments At the time of my signature, I reviewed and agree with the nursing past medical, surgical, social, and family history. There is no relevant family history pertinent to the patient complaint. Exam Const: General: cooperative, healthy appearing, comfortable, no acute distress, well developed, alert and well nourished Nutritional Appearance: well nourished Orientation/consciousness: patient oriented x3 Limitations: no limitations HENMT: Head: normal to inspection Ears: hearing grossly normal bilaterally and external ears normal Face/Nose/Sinus: Normal external nose present, Normal nares present, Normal nasal mucous membranes and turbinates present, Nasal discharge present clear bilateral,
== END 2024-01-08 19:54 | disposition home or self-care (01) ==
PROVIDERS: Emergency Provider Nurse Practitioner
DX: J06.9 Acute upper respiratory infection, unspecified (principal); J45.909 Unspecified asthma, uncomplicated; F17.210 Nicotine dependence, cigarettes, uncomplicated
CPT/HCPCS: 99213; G0463

== ENCOUNTER 2024-01-15 16:47 | Emergency (ER) | payer OTHER, SELFPAY ==
[2024-01-15 16:57] VITALS: BP 146/77; PULSE 66; RESP 16; TEMP 36.4; O2SAT 100
--- NOTE | 2024-01-15 18:04 | ED.URI ---
HPI - URI/Sore Throat General Chief Complaint: Upper Respiratory Infection Stated Complaint: Sore Throat/Cough Time Seen by Provider: 01/15/24 17:55 Source: patient, family, RN notes reviewed and old records reviewed Mode of arrival: ambulatory Limitations: no limitations History of Present Illness HPI Narrative: 43 year old female accompanied by spouse with complaints of last week diagnosed with bronchitis and she states that she took Prednisone for 6 days, used nebulizer, and also took Mucinex which did make chest congestion feel better. She states that she has increased sinus congestion and drainage feels like she is choking on her snot.She reports that she has been taking Benadryl, Coricidin, and also Using Mucinex along with her nebs and is not feeling better.She reports that she has been loosing her voice.She states no recent fevers. Patient reports that she has been feeling ill going on for almost 2 weeks now MD elicited complaint: cough, sore throat, rhinorrhea and nasal congestion Pertinent past history: asthma Onset (ago): week(s) (2) Severity: moderate Description of mucous: other (thick white to light yellow) Able to tolerate fluids by mouth: Yes Treatments prior to arrival: other (nebulizer and steroids Benadryl, Coricidin and also Mucinex) Related Data Home Medications Medication Instructions Recorded Confirmed zonisamide 50 mg capsule 50 mg PO BID 04/10/21 01/08/24 pregabalin 50 mg capsule 50 mg PO DAILY 11/03/21 01/08/24 lisinopril 10 mg tablet 10 mg PO DIRECTED 12/01/22 01/08/24 spironolactone 50 mg tablet 50 mg PO DAILY 09/04/23 01/08/24 Allergies Allergy/AdvReac Type Severity Reaction Status Date / Time amoxicillin Allergy Severe Swelling Verified 01/08/24 19:10 of Lip/Tongue/Throat clavulanic acid Allergy Severe Swelling Verified 01/08/24 19:10 [From Augmentin] Penicillins Allergy Severe Swelling Verified 01/08/24 19:10 of Lip/Tongue/Throat shellfish derived Allergy Severe Anaphylactic Verified 01/08/24 19:10 Shock latex Allergy Intermediate Rash Verified 01/08/24 19:10 Review of Systems Review of Systems: CONSTITUTIONAL: Rports malaise, no chills, sweats, or fever. EYES: Denies visual changes, redness, or discharge. ENT: Reports rhinorrhea, congestion, sinus pain,no otalgia and positive for sore throat. CARDIOVASCULAR: Denies chest pain, palpitations, or edema. RESPIRATORY: Reports cough.? Denies dyspnea. GASTROINTESTINAL: Denies abdominal pain, nausea, vomiting, diarrhea SKIN: Denies rash or itching. MUSCULOSKELETAL: Denies myalgia. NEUROLOGIC: Denies headache. All systems reviewed & are unremarkable except as noted in HPI and below PMFSH Past Medical History Medical History Asthma Bronchitis Hypertension Melanoma removed from scalp Neuropathy Pseudotumor cerebri syndrome Surgical History Surgical History History of surgical removal of ganglion cyst foot Hx of ovarian cystectomy S/P insertion of iliac artery stent femoral and bilateral iliac stents Status post cone biopsy of uterine cervix Family History Family History Mother Family history non-contributory Social History Social History Smoking packs per day: 0.75 Smoking cigarettes per day: 15.0 Smoking status: Current every day smoker Substance use: never Living arrangements: with family Gender identity (if verbalized by the patient): Female Sexual Orientation (if Verbalized by the Patient): Straight or Heterosexual Spiritual care concerns: No Comments At time of signature, agree with nursing past medical, surgical, social and family history. There is no relevant family history pertinent to the presenting complaint Exam Narrative: Suzanna
== END 2024-01-15 18:23 | disposition home or self-care (01) ==
PROVIDERS: Emergency Provider Registered Nurse
DX: J40 Bronchitis, not specified as acute or chronic (principal); R09.81 Nasal congestion; F17.210 Nicotine dependence, cigarettes, uncomplicated; J45.909 Unspecified asthma, uncomplicated; I10 Essential (primary) hypertension; G62.9 Polyneuropathy, unspecified; Z85.820 Personal history of malignant melanoma of skin
CPT/HCPCS: 99213; G0463

== ENCOUNTER 2024-03-05 16:09 | Emergency (ER) | payer OTHER, SELFPAY ==
[2024-03-05 16:16] VITALS: BP 135/58; PULSE 72; RESP 16; TEMP 36.6; O2SAT 99
--- NOTE | 2024-03-05 16:34 | ED_ITS ---
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 Patient has light red color to lower extremities, no open skin or evidence of cellulitis does improve when she keeps legs elevated. Patient reports that she has been taking Lasix every other day for swelling.She has attempted to get appointment with her PCP for the last 3 weeks. 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 Patient does follow with vascular at [facility] every few years for follow ups,plans to call office tomorrow to get appointment and to request labs since now taking Lasix more frequently.Patient does have palpble pedal pulses no tenderness to calf regions of lower legs has 1-2+ pitting edema to bilateral feet MD complaint: bilateral lower extremity swelling Onset (ago): week(s) (3) Location: left, right, upper extremity and lower extremity Severity: moderate Severity scale (1-10): 3 Quality: aching Treatments prior to arrival: other (compression stockings, Lasix, elevation of legs) Related Data Home Medications Medication Instructions Recorded Confirmed zonisamide 50 mg capsule 50 mg PO BID 04/10/21 01/08/24 pregabalin 50 mg capsule 50 mg PO DAILY 11/03/21 01/08/24 lisinopril 10 mg tablet 10 mg PO DIRECTED 12/01/22 01/08/24 spironolactone 50 mg tablet 50 mg PO DAILY 09/04/23 01/08/24 Lasix 03/05/24 ergocalciferol (vitamin D2) 1,250 03/05/24 mcg (50,000 unit) capsule Allergies Allergy/AdvReac Type Severity Reaction Status Date / Time amoxicillin Allergy Severe Swelling Verified 03/05/24 16:34 of Lip/Tongue/Throat clavulanic acid Allergy Severe Swelling Verified 03/05/24 16:34 [From Augmentin] Penicillins Allergy Severe Swelling Verified 03/05/24 16:34 of Lip/Tongue/Throat shellfish derived Allergy Severe Anaphylactic Verified 03/05/24 16:34 Shock latex Allergy Intermediate Rash Verified 03/05/24 16:34 Review of Systems Review of Systems: CONSTITUTIONAL: Denies fever, chills, or sweats. EYES: Denies visual changes, redness, or discharge. ENT: Denies rhinorrhea, congestion, sore throat, or otalgia. CARDIOVASCULAR: Denies chest pain, palpitations, positive for pitting edema to bilateral feet RESPIRATORY: Denies cough or dyspnea. GASTROINTESTINAL: Denies abdominal pain, nausea, vomiting, or diarrhea. GENITOURINARY: Denies dysuria or hematuria. SKIN: Denies rash or itching. MUSCULOSKELETAL: Reports some chronic back pain, joint pain, or myalgia. NEUROLOGIC: Denies headache, numbness, or weakness. PSYCHIATRIC: Denies anxiety or depression. All systems reviewed & are unremarkable except as noted in HPI and below PMFSH Past Medical History Medical History Asthma Bronchitis Hypertension Melanoma removed from scalp Neuropathy Pseudotumor cerebri syndrome Surgical History Surgical History History of surgical removal of ganglion cyst foot Hx of ovarian cystectomy S/P insertion of iliac artery stent femoral and bilateral iliac stents Status post cone biopsy of uterine cervix Family History Family History Mother Family history non-contributory Social History Social History Smoking packs per day: 0.75 Smoking cigarettes per day: 15.0 Smoking status: Current every day smoker Substance use: never Living arrangements: with family Gender identity (if verbalized by the patient): Female Sexual Orientation (if Verbalized by the Patient): Straight or Heterosexual Spiritual care concerns: No Comments At time of signature, agree with nursing past medical, surgical, social and family history. There is no relevant family history pertinent to the presenting complaint Exam Narrative: GENERAL: Well-appearing, well-nourished, obese and in no acute distress. HEAD: Normocephalic, atraumatic. EYES: PERRLA and EOMI. ENT: Nares clear, no rhinorrhea or epistaxis. Mucous membranes moist.TM's normal throat pink with no swelling or exudates NECK: Supple. no lymphadenopathy CHEST: Clear to auscultation. No respiratory distress.SAO2 99% on room air HEART: Regular rate and rhythm. No murmur heard. Normal peripheral pulses. ABDOMEN: Soft, nontender, nondistended, normal active bowel sounds. EXTREMITIES: Normal range of motion. Bilateral pedal edema which is pitting for the past 3 weeks with some aching of legs, some light redness of lower legs, no open skin areas or any weeping no evidence of cellulitis, denies any calf pain, swelling and redness does decrease when able to keep legs elevated, has past history of femoral and iliac stents SKIN: Warm, dry, no rash. NEURO: No focal deficits. Alert and oriented x3.anxious Course Course Emergency Course: Patient is aware of diagnosis, understands and agrees to treatment plan.? Anticipatory guidance given.? Patient agrees to follow-up as directed and is aware of reasons to seek care at the emergency department. Portions of this record may have been created with voice recognition software Level of Care: Express Care Visit Vital Signs Vital signs: Vital Signs Temperature 36.6 C 03/05/24 16:16 Pulse Rate 72 03/05/24 16:16 Respiratory Rate 16 03/05/24 16:16 Blood Pressure 135/58 L 03/05/24 16:16 Pulse Oximetry 99 03/05/24 16:16 Oxygen Delivery Room Air 03/05/24 16:16 Temperature 36.6 C 03/05/24 16:16 Pulse Rate 72 03/05/24 16:16 Respiratory Rate 16 03/05/24 16:16 Blood Pressure 135/58 L 03/05/24 16:16 Pulse Oximetry 99 03/05/24 16:16 Oxygen Delivery Room Air 03/05/24 16:16 Reviewed Medical Decision Making MDM Narrative Medical decision making narrative: Exam findings and imaging show no acute concerns or changes; patient is non- toxic appearing and is in no distress.? Patient is appropriate for outpatient treatment and follow-up Differential Diagnosis Differential Diagnosis: bilateral pedal edema, past history of vascular stenting iliac and femoral vessels, venous stasis, aching discomfort to legs Medical Records Medical records reviewed: Yes I reviewed the external patient's medical records. Vital Signs Vital Signs: Vital Signs Temperature 36.6 C 03/05/24 16:16 Pulse Rate 72 03/05/24 16:16 Respiratory Rate 16 03/05/24 16:16 Blood Pressure 135/58 L 03/05/24 16:16 Pulse Oximetry 99 03/05/24 16:16 Oxygen Delivery Room Air 03/05/24 16:16 Temperature 36.6 C 03/05/24 16:16 Pulse Rate 72 03/05/24 16:16 Respiratory Rate 16 03/05/24 16:16 Blood Pressure 135/58 L 03/05/24 16:16 Pulse Oximetry 99 03/05/24 16:16 Oxygen Delivery Room Air 03/05/24 16:16 reviewed Lab Data Lab results reviewed: Yes I reviewed the patient's lab results. Lab results narrative: urine dip reviewed specific gravity 1.030, no protein or signs of infection Labs: Lab Results 03/05/24 Range/Units 17:09 POC Urine Color Sherron POC Urine Clarity Cloudy POC Urine pH 5.5 POC Ur Specif Girdwood 1.030 POC Urine Protein Negative (Negative) POC Ur Glucose (UA) Negative (Negative) POC Urine Ketones Negative (Negative) POC Urine Blood Negative (Negative) POC Urine Nitrite Negative (Negative) POC Urine Bilirubin Negative (Negative) POC Urine Urobilinogen 0.2 POC U Leukocyte Esteras Negative (Negative) Critical Care Time Critical Care Time Critical Care Time: No Discharge Plan Discharge Clinical Impression: Swelling of left lower extremity, Swelling of right lower extremity Patient Disposition: Home, Self-Care Condition: Stable Instructions: Antibiotic Form, Edema (ED) Additional Instructions: Take Lasix daily make sure to drink orange juice while taking Lasix Contact your Vascular surgeon at [facility] to get labs drawn and for follow up appointment Keep legs elevated as much as possible, don't cross legs Wear good supportive shoes If any increase in swelling or any shortness of breath go directly to ED. If your symptoms persist, change or worsen significantly before you can contact your personal physician then please, without delay, go to the emergency d epartment for further evaluation. Follow-up with PCP in 7-10 days or sooner if needed Follow up with PCP soon in regards to your blood pressure which is elevated above threshold for referral. Blood pressure above 120/80 may indicate pre- hypertension. 135/58 Prescriptions: No Action spironolactone 50 mg tablet 50 mg PO DAILY zonisamide 50 mg Capsule 50 mg PO BID pregabalin 50 mg capsule 50 mg PO DAILY lisinopril 10 mg tablet 10 mg PO DIRECTED ergocalciferol (vitamin D2) 1,250 mcg (50,000 unit) capsule Lasix Follow-up/Referrals: PHYSICIAN NOT ON STAFF,NONSTAFF [Primary Care Provider] - Time of Disposition: 17:27 Quality Elizabeth Coma Scale Eyes: Open Verbal: Oriented and Alert Motor: Follows Commands Elizabeth Coma Total Score: 15
[2024-03-05 17:11] LABS: EDUAAPPEAR Cloudy; EDUABILI Negative (Negative); EDUABLOOD Negative (Negative); EDUACOLOR1 Amber; EDUAGLUCOSE Negative (Negative); EDUAKETONE Negative (Negative); EDUALEUKO Negative (Negative); EDUANITRATE Negative (Negative); EDUAPH 5.5; EDUAPROTEIN Negative (Negative); EDUAUROBILI 0.2
== END 2024-03-05 17:33 | disposition home or self-care (01) ==
PROVIDERS: Emergency Provider Registered Nurse
DX: R22.43 Localized swelling, mass and lump, lower limb, bilateral (principal); F17.210 Nicotine dependence, cigarettes, uncomplicated; J45.909 Unspecified asthma, uncomplicated; I10 Essential (primary) hypertension; G62.9 Polyneuropathy, unspecified; G93.2 Benign intracranial hypertension; Z85.820 Personal history of malignant melanoma of skin; Z95.820 Peripheral vascular angioplasty status with implants and grafts
CPT/HCPCS: 81003; 99212; G0463

== ENCOUNTER 2025-01-15 17:30 | Emergency (ER) | payer OTHER, SELFPAY ==
[2025-01-15 17:36] VITALS: BP 140/82; PULSE 80; RESP 20; TEMP 36.6; O2SAT 98
--- OUTSIDE RECORDS SUMMARY | 2025-01-15 17:36 | XMS_ITS | Patient Health Record ---
Author Organization [facility] Address [address] [place], [place] [id number] Care Team Providers Care Hand Frame Surgical Elastic Knitter Name Role Phone Gagan Workamn Primary Care Provider Yessi Weissew Dominick Unavailable [phone] Allergies Allergen (clinical drug ingredient) Drug/Non Drug Allergy documented on EMR Reaction Allergy Type Onset Date Status Latex Latex Unknown Allergy Active Shellfish (FN) Shellfish-derived Products Unknown Drug Allergy Active Reason For Referral No Information Medications Medication SIG (Take, Route, Frequency, Duration) Notes Start Date End Date Status Aspirin 325 MG 1 tablet Orally Once a day Active Zonisamide 50 MG 1 capsule Orally Twice a day Active Furosemide 40 MG 1 tablet Orally twice a day NEEDED Active acetaZOLAMIDE Sodium 500 MG 2 tablet orally twice a day Not-Taking Spironolactone 100 mg TAKE 1 TABLET DAILY Active Lyrica 50 MG 1 capsule Orally three times a day Not-Taking Diamox Sequels 500 MG 1 capsule Orally Once a day; Duration: 30 day(s) Not-Taking Aspirin Adult Low Strength 81 MG 1 tablet Orally Once a day; Duration: 30 day(s) Not-Taking vitamin d2 50,000 units once a week Active Klor-Con 20 MEQ 1 tablet Orally four times a day Active Social History Tobacco Use: Social History Observation Description Date Details (start date - stop date) Current Smoker NA - NA Alcohol: Question Answer Notes Did you have a drink containing alcohol in the p ast year? No Points 0 Interpretation Negative Smoking Question Answer Notes Are you a: Current smoker Problems Problem Type SNOMED Code ICD Code Onset Dates Problem Status W/U Status Risk Notes Problem Hypercalcemia (61234514) Hypercalcemia (E83.52) Active confirmed Problem Hypertension (24209760) Hypertension (I10) Active confirmed Plan Of Treatment Pending Test Test Name Order Date Potassium, Serum 06/08/2020 Renal Panel (10) 12/07/2020 Renal Panel (10) 06/16/2019 Renal Panel (10) 12/09/2019 Renal Panel (10) 06/08/2020 Magnesium 06/08/2020 Magnesium 12/09/2019 Magnesium 06/16/2019 Magnesium 01/07/2019 Magnesium 02/18/2019 Magnesium 12/07/2020 Renal Panel 01/07/2019 Renal Panel 02/18/2019 Magnesium 03/27/2019 Basic Met Plas 03/27/2019 Basic Met Plas 03/27/2019 Potassium Plas 05/11/2021 Future Test Test Name Order Date Magnesium 01/07/2019 Basic Metabolic Panel 01/07/2019 UA, Microscopic 06/16/2019 CK (Creatine Kinase) 06/16/2019 Insurance Providers Payer Name Payer Address Payer Phone Subscriber Number Group Number Insured Name Patient Relationship to Insured Coverage Start Date Coverage End Date [employer] [address] [address] [place] [address] [id number] Maite Devlin Self - patient is the insured Medical (General) History Medical History History ICD Code idiopathic intracranial hypertension Hypertension morbid obesity peripheral neuropathy. left LE DVT: happened while , pr tea michael presentation. Left LE DVT: involves the le ft common iliac, exteranl and internal iliac vein. has stent in both zaina vein Surgical History Surgery Date(Month/Year) C sec
--- OUTSIDE RECORDS SUMMARY | 2025-01-15 17:36 | XMS_ITS | Encounter Summary ---
Author Organization [facility] Address [address] [place] [address] Phone Care Team Providers Care Sack Keeper Name Role Phone Gagan Workman NP Primary Care Provider [phone] Dominick Cardozo MD Unavailable [phone] Maisha Greer DO Primary Care Provider [phone] Gagan Workman NP Primary Care Provider [phone] Ethan Severino MD Primary Care Provider [phone] Encounter Details Date Type Department Care Team (Late st Contact Info) Description 08/06/2018 Ophth Exam [facility] Medicine Ophthalmology [address] [place] [address] [place] [address] Malena Patricia MD [address] [place] [address] Social History Tobacco Use Types Packs/Day Years Used Date Smoking Tobacco: Every Day Cigarettes Smokeless Tobacco: Never Comments:Smoking History Pac ks/day: 1 Packs Alcohol Use Standard Drinks/Week Comments Yes 0 (1 standard drink = 0.6 oz pur e alcohol) Comments No Sex and Gender Information Value Date Recorded Sex Assigned at Not on file Legal Sex 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 12/15/2019 12/15/2019 12/29/2019 3:0 5 AM CDT COVID: Suspected 01/10/2021 01/10/2021 01/10/2021 5:38 PM CDT COVID: Suspected 04/05/2021 04/05/2021 04/05/2021 6:11 PM SAFETY COUNSELOR COVID: Suspected 11/29/2022 11/29/2022 11/30/2022 3:05 AM CDT C. 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 to credit collections clerk Extraocular Movement Right eye Left eye Full Full Neuro/Psych Oriented x3: Yes Mood/Affect: Normal Dilation Both eyes: 1.0% Mydriacyl, 2 .5% Phenylephrine @ 3:50 PM Color Right eye Left eye Ishihara 02/14 02/14 +slight subjective red desat OS External Exam Right eye Left eye External Normal Normal Slit Lamp Exam Right eye Left eye Lids/Lashes Normal Normal Conjunctiva/Sclera Tr injection, debris in tear film Tr injection, debris in tear film Cornea Clear Clear Anterior Chamber Deep and quiet Deep and quiet Iris Round and reactive Round and cuauhtemoc ctive Lens Clear Clear Vitreous Normal Normal Fundus Exam Right eye Left eye Disc 360 disc edema witho ut vessel obscuration or disc heme 360 disc edema with obscuration of small and some large vessels, no disc heme Macula Normal Normal Vessels Sl tortuous Sl tortuous Periphery Normal Normal Care Teams Sack Keeper Relationship Specialty Start Date End Date Gagan Workman SHAMPOO ASSISTANT PCP - General Internal Medicine 05/08/18 04/14/20 Maisha Greer DO [address] [facility] [address] [place], [place] [id number] PCP - General Internal Medicine 04/15/20 02/08/21 Gagan Workman NP PCP - General Internal Medicine 02/09/21 06/25/22 Ethan Severino MD [address] [facility] [address] [place] [address] PCP - General Family Medicine 06/26/22 Dominick Cardozo MD Consulting Physician Nephrology 12/31/18 documented as of this encounter
--- OUTSIDE RECORDS SUMMARY | 2025-01-15 17:36 | XMS_ITS | Clinical Summary ---
Author Organization [facility] Address [address] [place] [address] [address] Team Prov[address] Care [address] Repairer Name Role Phone Dominick Cardozo MD Unavailable [phone] Ethan Severino MD Primary Care Provider [phone] Allergies Active Allergy Reactions Criticality Noted Date Comments Amoxicillin Hives,Rash Medium Reaction: Hives, Iodine Unknown 08/15/2018 Per patient-No reactions to contrast, has always been premedicated due to shellfish allergy. Latex Hives,Rash,Anaphylaxis High 06/08/2020 Reaction: rash, , , Reaction: Hives, Skin Rash, Other Unknown 06/08/2020 Penicillins Hives Medium 06/22/2017 Shellfish Anaphylaxis High 06/22/2017 Venom-Wasp Anaphylaxis High 10/04/2018 Queen Shortness of breath High 10/04/2018 Medications ipratropium-albu terol (DUO-NEB) 0.5-2.5 mg/3 mL nebulizer solution Active furosemide (LASIX) 40 mg tablet 2 Active albuterol HFA (PROVENTIL HFA,VENTOLIN HFA,PROAIR HFA) 90 mcg/actuation inhaler Inhale 2 puffs every 4 (four) hours as needed for wheezing 1 each 1 4 Active pregabalin (LYRICA) 50 mg capsule Take 1 capsule (50 mg total) by mouth 2 (two) times a day 180 capsule 1 5 Active EPINEPHrine 0.3 mg/0.3 mL auto-injection syringeIndicatio ns:Anaphylaxis Inject 0.3 mL (0.3 mg total) into the muscle as instructed as needed for anaphylaxis Repeat second Injection after 5 minutes. Call 911 after use. 2 each 5 Active zonisamide (ZONEGRAN) 50 mg capsuleIndicatio ns:Idiopathic intracranial hypertension,Chr onic migraine w/o aura w/o status migrainosus, not intractable Take 1 capsule (50 mg total) by mouth daily 90 capsule 3 5 08/14/19 26 Active lisinopriL (PRINIVIL,ZESTRI L) 10 mg tablet TAKE 1 TABLET DAILY 90 tablet 1 5 Active albuterol-budeso nide (Airsupra) 90-80 mcg/actuation HFA aerosol inhalerIndicatio ns:Viral URI with cough Inhale 2 puffs every 4 (four) hours as needed (wheezing/short ness of breath) 10.7 g 3 5 Active semaglutide (OZEMPIC) 2 mg/dose (8 mg/3 mL) pen injector injection Inject 2 mg under the skin every 7 days 9 mL 1 5 03/23/20 25 Active spironolactone (ALDACTONE) 50 mg tablet TAKE 1 TABLET DAILY 90 tablet 3 5 Active Active Problems Problem Noted Date Diagnosed Date Chronic migraine w/o aura w/ o status migrainosus, not intractable 11/27/2024 Diabetic neuropathy, type II diabetes mellitus ( [facility]) 09/24/2024 Type 2 diabetes mellitus wit hout complication, without long-term current use of insulin 05/22/2024 Assessment & Plan (09/24/2024 3:40 PM CDT): Lab Results Component Value Date HGBA1C 6.5 05/08/2024 HGBA1C 6.3 (H) 11/16/2023 HGBA1C 6.0 (H) 04/06/2023 Lab Results Component Value Date LDLCALC 119 04/06/2023 CREATININE 0.7 04/19/2024 At goal at this time C/w Ozempic 1 mg qweekly Assessment & Plan (08/04/2024 10:31 AM CDT): Stable at this time Continyue ozempic Hypertension 03/27/2024 Assessment & Plan (09/24/2024 3:43 PM CDT): BP Readings from Last 3 Encounters: 09/24/24 114/84 09/11/24 110/80 08/28/24 126/84 Vitals BP 114/84 (BP Location: Left arm, Patient Position: Sitting) Pulse 80 Resp 16 Ht 170.2 cm (5' 7.01) Wt (!) 138.8 kg (305 lb 14.4 oz) SpO2 98% BMI 47.90 kg/m Lab Results Component Value Date POTASSIUM 4.0 03/10/2024 At goal Continue aldactone 50 mg every day, lisinopril 10 mg qd Assessment & Plan (05/08/2024 1:23 PM FIELD APPRAISER): BP Readings from Last 3 Encounters: 05/08/24 108/78 03/10/24 134/80 01/23/24 132/80 Vitals BP 108/78 (BP Location: Left arm, Patient Position: Sitting) Pulse 77 Resp 16 Ht 170.2 cm (5' 7.01) Wt (!) 142.4 kg (313 lb 14.4 oz) SpO2 99% BMI 49.15 kg/m Lab Results Component Value Date POTASSIUM 4.0 03/10/2024 At goal Continue aldactone 50 mg every day, lisinopril 10 mg qd Muscle cramps 11/14/2023 Chronic bilateral low back pain without sciatica 11/14/2023 Disorder of skin 10/15/2023 Toxic effect of stingray venom 10/15/2023 Class 3 severe obesity due t o excess calories with serious comorbidity and body mass index (BMI) of 45.0 to 49.9 in adult 09/25/2023 Assessment & Plan (09/24/2024 3:43 PM CDT): Wt Readings from Last 10 Encounters: 09/24/24 (!) 138.8 kg (305 lb 14.4 oz) 09/11/24 (!) 137 kg (302 lb) 08/28/24 (!) 137 kg (302 lb) 08/04/24 (!) 137.4 kg (302 lb 14.4 oz) 05/08/24 (!) 142.4 kg (313 lb 14.4 oz) 03/27/24 (!) 142.4 kg (314 lb) 03/10/24 (!) 142.4 kg (314 lb) 01/23/24 (!) 144.7 kg (319 lb) 11/14/23 (!) 144.4 kg (318 lb 4.8 oz) 09/25/23 (!) 139.8 kg (308 lb 3.2 oz) BMI Readings from Last 3 Encounters: 09/24/24 47.90 kg/m 09/11/24 47.30 kg/m 08/28/24 47.30 kg/m Not at goal of bmi <30 Continue diet and exercise BMI Follow-up includes: nutrition counseling and exercise counseling. Not at goal of bmi <30 Continue diet and exercise Discussed protein intake BMI Follow-up includes: nutrition counseling and exercise counseling. Due to issues with weight gain, joint paint, dyspnea, physical deconditioning, Contineu ozempic, increase ozempic to 2 mg qweekly Assessment & Plan (08/04/2024 10:25 AM CDT): Wt Readings from Last 3 Encounters: 08/04/24 (!) 137.4 kg (302 lb 14.4 oz) 05/08/24 (!) 142.4 kg (313 lb 14.4 oz) 03/27/24 (!) 142.4 kg (314 lb) BMI Readings from Last 3 Encounters: 08/04/24 47.43 kg/m 05/08/24 49.15 kg/m 03/27/24 49.18 kg/m Not at goal of bmi <30 Continue diet and exercise BMI Follow-up includes: nutrition counseling and exercise counseling. Not at goal of bmi <30 Continue diet and exercise Discussed protein intake BMI Follow-up includes: nutrition counseling and exercise counseling. Due to issues with weight gain, joint paint, dyspnea, physical deconditioning, Contineu ozempic Assessment & Plan (05/08/2024 1:27 PM FIELD APPRAISER): Wt Readings from Last 3 Encounters: 05/08/24 (!) 142.4 kg (313 lb 14.4 oz) 03/27/24 (!) 142.4 kg (314 lb) 03/10/24 (!) 142.4 kg (314 lb) BMI Readings from Last 3 Encounters: 05/08/24 49.15 kg/m 03/27/24 49.18 kg/m 03/10/24 49.18 kg/m Not at goal of bmi <30 Continue diet and exercise BMI Follow-up includes: nutrition counseling and exercise counseling. Not at goal of bmi <30 Continue diet and exercise Discussed protein intake BMI Follow-up includes: nutrition counseling and exercise counseling. Due to issues with weight gain, joint paint, dyspnea, physical deconditioning, recommend starting ozempic for weight loss Assessment & Plan (03/10/2024 2:23 PM FIELD APPRAISER): Not at goal of bmi <30 Continue diet and exercise Discussed protein intake BMI Follow-up includes: nutrition counseling and exercise counseling. Assessment & Plan (11/14/2023 10:00 AM CDT): Wt Readings from Last 3 Encounters: 11/14/23 (!) 144.4 kg (318 lb 4.8 oz) 09/25/23 (!) 139.8 kg (308 lb 3.2 oz) 05/02/23 (!) 140.2 kg (309 lb) BMI Readings from Last 3 Encounters: 11/14/23 49.84 kg/m 09/25/23 48.26 kg/m 05/02/23 48.40 kg/m Not at goal of bmi <30 Continue diet and exercise BMI Follow-up includes: nutrition counseling and exercise counseling. Assessment & Plan (09/25/2023 3:55 PM CDT): Wt Readings from Last 3 Encounters: 09/25/23 (!) 139.8 kg (308 lb 3.2 oz) 05/02/23 (!) 140.2 kg (309 lb) 04/20/23 (!) 137.9 kg (304 lb) BMI Readings from Last 3 Encounters: 09/25/23 48.26 kg/m 05/02/23 48.40 kg/m 04/20/23 47.61 kg/m Not at goal of bmi <30 Continue diet and exercise BMI Follow-up includes: nutrition counseling and exercise counseling. Annual physical exam 05/02/2023 Assessment & Plan (05/02/2023 9:12 AM FIELD APPRAISER): Discussed lifestyle modifications, diet and exercise. Routine blood work ordered/reviewed today. Yearly vision and dental examinations. Morbid obesity with BMI of 45.0-49.9, adult 11/06 Assessment & Plan (09/24/2024 3:40 PM CDT): Wt Readings from Last 3 Encounters: 09/24/24 (!) 138.8 kg (305 lb 14.4 oz) 09/11/24 (!) 137 kg (302 lb) 08/28/24 (!) 137 kg (302 lb) BMI Readings from Last 3 Encounters: 09/24/24 47.90 kg/m 09/11/24 47.30 kg/m 08/28/24 47.30 kg/m Not at goal of bmi <30 Continue diet and exercise BMI Follow-up includes: nutrition counseling and exercise counseling. Assessment & Plan (08/04/2024 10:25 AM CDT): Wt Readings from Last 3 Encounters: 08/04/24 (!) 137.4 kg (302 lb 14.4 oz) 05/08/24 (!) 142.4 kg (313 lb 14.4 oz) 03/27/24 (!) 142.4 kg (314 lb) BMI Readings from Last 3 Encounters: 08/04/24 47.43 kg/m 05/08/24 49.15 kg/m 03/27/24 49.18 kg/m Not at goal of bmi <30 Continue diet and exercise BMI Follow-up includes: nutrition counseling and exercise counseling. Assessment & Plan (05/08/2024 1:23 PM FIELD APPRAISER): Wt Readings from Last 3 Encounters: 05/08/24 (!) 142.4 kg (313 lb 14.4 oz) 03/27/24 (!) 142.4 kg (314 lb) 03/10/24 (!) 142.4 kg (314 lb) BMI Readings from Last 3 Encounters: 05/08/24 49.15 kg/m 03/27/24 49.18 kg/m 03/10/24 49.18 kg/m Not at goal of bmi <30 Continue diet and exercise BMI Follow-up includes: nutrition counseling and exercise counseling. Assessment & Plan (03/10/2024 2:23 PM FIELD APPRAISER): Wt Readings from Last 3 Encounters: 03/10/24 (!) 142.4 kg (314 lb) 01/23/24 (!) 144.7 kg (319 lb) 11/14/23 (!) 144.4 kg (318 lb 4.8 oz) BMI Readings from Last 3 Encounters: 03/10/24 49.18 kg/m 01/23/24 49.96 kg/m 11/14/23 49.84 kg/m Not at goal of bmi <30 Continue diet and exercise BMI Follow-up includes: nutrition counseling and exercise counseling. Assessment & Plan (11/14/2023 9:58 AM CDT): Wt Readings from Last 3 Encounters: 11/14/23 (!) 144.4 kg (318 lb 4.8 oz) 09/25/23 (!) 139.8 kg (308 lb 3.2 oz) 05/02/23 (!) 140.2 kg (309 lb) BMI Readings from Last 3 Encounters: 11/14/23 49.84 kg/m 09/25/23 48.26 kg/m 05/02/23 48.40 kg/m Not at goal of bmi <30 Continue diet and exercise BMI Follow-up includes: nutrition counseling and exercise counseling. Assessment & Plan (09/25/2023 3:53 PM CDT): Wt Readings from Last 3 Encounters: 09/25/23 (!) 139.8 kg (308 lb 3.2 oz) 05/02/23 (!) 140.2 kg (309 lb) 04/20/23 (!) 137.9 kg (304 lb) BMI Readings from Last 3 Encounters: 09/25/23 48.26 kg/m 05/02/23 48.40 kg/m 04/20/23 47.61 kg/m Not at goal of bmi <30 Continue diet and exercise BMI Follow-up includes: nutrition counseling and exercise counseling. Assessment & Plan (07/11/2023 3:51 PM FIELD APPRAISER): Wt Readings from Last 3 Encounters: 05/02/23 (!) 140.2 kg (309 lb) 04/20/23 (!) 137.9 kg (304 lb) 01/17/23 (!) 140.6 kg (310 lb) BMI Readings from Last 3 Encounters: 05/02/23 48.40 kg/m 04/20/23 47.61 kg/m 01/17/23 51.59 kg/m Not at goal of bmi <30 Continue diet and exercise BMI Follow-up includes: nutrition counseling and exercise counseling. Assessment & Plan (05/02/2023 9:07 AM FIELD APPRAISER): Wt Readings from Last 3 Encounters: 05/02/23 (!) 140.2 kg (309 lb) 04/20/23 (!) 137.9 kg (304 lb) 01/17/23 (!) 140.6 kg (310 lb) BMI Readings from Last 3 Encounters: 05/02/23 48.40 kg/m 04/20/23 47.61 kg/m 01/17/23 51.59 kg/m Not at goal of bmi <30 Continue diet and exercise BMI Follow-up includes: nutrition counseling and exercise counseling. Assessment & Plan (12/04/2022 8:07 AM CDT): Wt Readings from Last 3 Encounters: 11/29/22 (!) 148.8 kg (328 lb 1.6 oz) 10/16/22 (!) 142.9 kg (315 lb 1.6 oz) 08/08/22 (!) 144.1 kg (317 lb 9.6 oz) BMI Readings from Last 3 Encounters: 11/29/22 51.39 kg/m 10/16/22 49.34 kg/m 08/08/22 49.73 kg/m Not at goal of bmi <30 Continue diet and exercise BMI Follow-up includes: nutrition counseling and exercise counseling. Wheezing 10/16/2022 Asthmatic bronchitis with acute exacerbation 04/2023 Assessment & Plan (10/16/2022 11:24 AM CDT): Worsening at this time with wheezing and sob and habving to use her inhaler frequently Will rx azithro plus steroids Primary stabbing headache 10/19/2021 Palpitations 10/17/2021 Dizziness 10/17/2021 Assessment & Plan (06/26/2022 2:41 PM FIELD APPRAISER): Likely related to medication vs pseudotumor cerebri- will get cervical mri, may need referral back to neuro vs ENT Chest discomfort 10/17/2021 Abnormal brain MRI 06/02/2020 Assessment & Plan (06/02/2020 11:19 AM FIELD APPRAISER): MRI does show scattered subcortical periventricular T2 changes which may represent extravasation given intracranial hypertension. I do not see any reporting of mass lesions at this point and she has no physical examination abnormalities referable to same. She does have a family history of primary demyelination (multiple sclerosis) and she is concerned that she could to have it. As she is having a spinal fluid examination done, I will send the CSF for study to include cell count with differential, protein, glucose, of a clonal bands, myelin basic protein, and IgG index. Rectal bleeding 07/15/2019 Assessment & Plan (07/15/2019 2:13 PM CDT): Intermittent for a couple of months. It doesn't always occur with BM's and can sometimes just leak out of her rectum. It was really bad for about 3 weeks in Apr 2019 and went to ER. She was told it was hemorrhoids and sent home. Pt says it got a little better but still having issues with leaking intermittently. Will schedule colonoscopy. Chronic idiopathic constipation 07/15/2019 Assessment & Plan (07/15/2019 2:17 PM CDT): Pt has BM about every 3 days and gets bloated in between BM's. When she does have BM, it is a hard stool. Will start on fiber gummies daily. Add Miralax daily prn along with fiber. GERD (gastroesophageal reflux disease) 0 Assessment & Plan (07/15/2019 2:15 PM CDT): Occurring on daily basis with almost every meal. Pt started on pantoprazole 40mg daily. We discussed importance of GERD diet and she was given handout on this. Recommended EGD due to persistent dysphagia, history of smoking, and persistent GERD but patient wants to try medication first. Other dysphagia 07/15/2019 Assessment & Plan (07/15/2019 2:15 PM CDT): Pt says feels as if she has a lump in her throat often and can cause it to feel as if things get stuck in her throat. Pt says this happens almost daily along with daily heartburn. Recommended EGD; however, patient would like to try GERD medication before doing EGD. Will re-evaluate at next appointment. Rectal pain 07/15/2019 Assessment & Plan (07/15/2019 2:13 PM CDT): Has rectal pain occasionally when she has harder BM's. Pseudotumor cerebri 02/10/2019 Assessment & Plan (07/22/2020 4:09 PM CDT): Patient's history of intracranial hypertension. She has previous had intolerance to see does although might topiramate and is not having much affect with zonisamide at this time. Her CSF opening pressure is 20 cm of water and she is canal complaining of ongoing headaches and visual blurring. At this point I think she would be best served with consideration of a neurosurgical consultation for an LP shunt. She will be meeting with her neuroophthalmologist at [facility] next month for further discussion and evaluation. Her other option from my standpoint would be a bariatric consultation for weight loss options. I will see her back in the office in the medical neurological standpoint on an as-needed basis. Assessment & Plan (06/02/2020 11:18 AM FIELD APPRAISER): Patient has a documented history of intracranial hypertension (pseudotumor cerebri). She has had intolerance to seizures acetazolamide and a hypersensitivity reaction to topiramate. Currently she is on zonisamide with better tolerability although is having a host of symptoms including headaches, visual blurring, dizziness, and episodic gait imbalance. Her current neurological examination is normal. There is no evidence of papilledema on funduscopic examination. However it is possible given the history provided that she does have persistent intracranial hypertension despite trials of several carbonic anhydrase inhibitors. I will obtain a spinal fluid examination for an opening pressure to see if intracranial hypertension remains. If it does given her intolerance to several carbonic anhydrase inhibitors as well as concurrent use of furosemide, she may be an appropriate candidate for a lumboperitoneal shunt. I will see her back upon completion of spinal fluid examination and laboratory CSF analysis. Bronchitis 10/04/2018 Edema of lower extremity 10/04/2018 Nonintractable chronic migraine 10/04/2018 Assessment & Plan (06/26/2022 2:11 PM FIELD APPRAISER): Not totally at goal - seems ryan also be related to her pseudotumor cerebri - following with neuro and has been stable on her zonisamide Multiple joint pain 10/04/2018 Neuropathy 10/04/2018 Assessment & Plan (05/02/2023 9:07 AM FIELD APPRAISER): Refill lyrica 50 mg tid Peripheral vascular complication 10/04/2018 Tobacco user 10/04/2018 Papilledema associated with increased intracrani al pressure 08/19/2018 Assessment & Plan (12/12/2018 10:02 AM CDT): F/u for IIH. Last seen 10/04/18. Currently on Diamox 1000 mg BID. Patient reports dizziness, numbness, tingling, weakness and recent frequent falls. She also endorses more frequent TVOs since she was last here 09/2018 with peripheral vision disturbances temporally OS. DRAKE are stable. She also reports more frequent balance issues/falls and an episode of incontinence this week which is new. She's tolerating her Diamox ok, states it has worsened some of the extremity symptoms, but, not significantly so. Prior MRI/MRV has some radiologic features of IIH including partially empty sella, mild flattening of the posterior globe. Lumbar puncture negative for infectious/inflammatory etiologies. Unfortunately no diagnostic opening pressure taken. OCT today with improvement in edema. HVF 24-2 full. Mac OCT without GCL thinning. Patient saw neurology at [facility] who performed various testing, such as nerve conduction, all of which was normal. Recommended second opinion at [facility]. Discussed weight loss with patient. Patient states she has been eating healthier, trying to walk, but having frequent falls which make it challenging. Overall, objectively patient is stable, however, she is having a constellation of neurological symptoms with normal testing thus far. Her chart was reviewed by neurology at [facility] previously and it was recommended that she follow-up with Dr Martinez with the movement clinic. She was able to get into [facility] neurology sooner thus she canceled that appointment. We do recommend that she obtain a second opinion here which she is amenable to. We provided patient with the telephone number for Dr Martinez's office to reschedule. Patient also has an appointment with Dr Betts (neuro ophth) 02/2019. Strongly recommend that she keep this appointment. We also discussed with patient the possible benefit of a psychiatric referral, she would like to hold off on this for now. Will continue patient on current dose of Diamox - 2000 mg daily. Will not schedule f/u in [facility] for now, happy to see patient again in the future once stabilized further. Assessment & Plan (10/04/2018 3:10 PM CDT): F/u for IIH. Last seen 08/30/18. Diamox increased last visit from 500 mg BID to 1000 mg BID. Patient states DRAKE has improved as well as frequency of TVOs. Only had 2 in last month as opposed to multiple daily. Prior MRI/MRV has some radiologic features of IIH including partially empty sella, mild flattening of the posterior globe, and mildly dilated optic nerve sheaths. Lumbar puncture negative for infectious/inflammatory etiologies. Unfortunately no diagnostic opening pressure taken. OCT today with edema OU - improved from prior. HVF 24-2 OU with enlarged blind spot, but otherwise ok. Has appt with neurologist 10/10/18 at [facility]. Overall doing better. Symptomatically improved. Tolerating Diamox. Reporting some neuropathy, but had prior neuropathy as well. She would like to stay on current dose. Discussed weight loss with patient. Minor weight loss can be very beneficial. RTC 2-3 months with HVF, OCT and DFE OU. Assessment & Plan (08/30/2018 4:30 PM CDT): Patient presents with symptoms of IIH including headache and TVOs, which have been occurring for the past year but more frequently in recent weeks (~5-6 TVOs per day, which she describes as a dimming of her vision for ~30 seconds, sometimes provoked by change in position or looking to the side). Has ear pain but no pulsatile tinnitus. MRI/MRV has some radiologic features of IIH including partially empty sella, mild flattening of the posterior globe, and mildly dilated optic nerve sheaths. Lumbar puncture negative for infectious/inflammatory etiologies. Unfortunately no diagnostic opening pressure taken. Overall doing well. Symptomatically improved. DRAKE better. Tinnitus lessened. HVF mild changes (enlarged blind spot), but no significant field deficit. -Increase diamox to 1000mg BID given current persistent swelling -RTC 1 month for repeat DFEx, OCT, and color plates at that time. -Referral for neurology eval already made. Varicose veins of lower extremity 12/14/2015 History of deep venous thrombosis 04/08/2013 Overview (08/11/2016): History of DVT (deep vein thrombosis) Asthma 04/08/2013 Overview (08/12/2016): ASTHMA NOS Assessment & Plan (09/24/2024 3:38 PM CDT): Hx of asthma States that she had an exacerbation recently Will refill her albusterol inhaler No wheezing now Numbness and tingling Abnormality of gait and mobility Hereditary and idiopathic neuropathy Resolved Problems Problem Noted Date Diagnosed Date Resolved Date Prediabetes 05/02/2023 09/24/2024 Assessment & Plan (05/02/2023 9:11 AM FIELD APPRAISER): Lab Results Component Value Date HGBA1C 6.0 (H) 04/06/2023 HGBA1C 6.2 (H) 11/29/2022 HGBA1C 5.8 (H) 10/01/2018 Lab Results Component Value Date LDLCALC 119 04/06/2023 CREATININE 0.68 04/06/2023 At goal at this time Will continue to monitor Maybe preduent to start medication prior to reaching A1c of 6.5 due to co morbidities and may also help with weight loss Morbid obesity with BMI of 45.0-49.9, adult 06/26/2022 08/08/2022 Class 3 severe obesity due t o excess calories with serious comorbidity and body mass index (BMI) of 50.0 to 59.9 in adult 07/15/2019 4 Assessment & Plan (07/11/2023 3:50 PM FIELD APPRAISER): Wt Readings from Last 3 Encounters: 05/02/23 (!) 140.2 kg (309 lb) 04/20/23 (!) 137.9 kg (304 lb) 01/17/23 (!) 140.6 kg (310 lb) BMI Readings from Last 3 Encounters: 05/02/23 48.40 kg/m 04/20/23 47.61 kg/m 01/17/23 51.59 kg/m Not at goal of bmi <30 Continue diet and exercise BMI Follow-up includes: nutrition counseling and exercise counseling. Assessment & Plan (05/02/2023 9:05 AM FIELD APPRAISER): Wt Readings from Last 3 Encounters: 05/02/23 (!) 140.2 kg (309 lb) 04/20/23 (!) 137.9 kg (304 lb) 01/17/23 (!) 140.6 kg (310 lb) BMI Readings from Last 3 Encounters: 05/02/23 48.40 kg/m 04/20/23 47.61 kg/m 01/17/23 51.59 kg/m Not at goal of bmi <30 Continue diet and exercise BMI Follow-up includes: nutrition counseling and exercise counseling. Assessment & Plan (11/29/2022 8:59 AM CDT): Wt Readings from Last 3 Encounters: 11/29/22 (!) 148.8 kg (328 lb 1.6 oz) 10/16/22 (!) 142.9 kg (315 lb 1.6 oz) 08/08/22 (!) 144.1 kg (317 lb 9.6 oz) BMI Readings from Last 3 Encounters: 11/29/22 51.39 kg/m 10/16/22 49.34 kg/m 08/08/22 49.73 kg/m Not at goal of bmi <30 Continue diet and exercise BMI Follow-up includes: nutrition counseling and exercise counseling. Assessment & Plan (10/16/2022 11:17 AM CDT): Wt Readings from Last 3 Encounters: 10/16/22 (!) 142.9 kg (315 lb 1.6 oz) 08/08/22 (!) 144.1 kg (317 lb 9.6 oz) 07/18/22 (!) 137 kg (302 lb) BMI Readings from Last 3 Encounters: 10/16/22 49.34 kg/m 08/08/22 49.73 kg/m 07/18/22 47.30 kg/m Not at goal of bmi <30 Continue diet and exercise BMI Follow-up includes: nutrition counseling and exercise counseling. Assessment & Plan (08/08/2022 4:38 PM CDT): Wt Readings from Last 3 Encounters: 08/08/22 (!) 144.1 kg (317 lb 9.6 oz) 07/18/22 (!) 137 kg (302 lb) 07/14/22 (!) 137 kg (302 lb) BMI Readings from Last 3 Encounters: 08/08/22 49.73 kg/m 07/18/22 47.30 kg/m 07/14/22 47.30 kg/m Not at goal of bmi <30 Continue diet and exercise BMI Follow-up includes: nutrition counseling and exercise counseling. ] Assessment & Plan (06/26/2022 2:10 PM FIELD APPRAISER): Wt Readings from Last 3 Encounters: 06/26/22 (!) 140.8 kg (310 lb 6.4 oz) 06/11/22 129.3 kg (285 lb) 10/17/21 (!) 140.2 kg (309 lb) BMI Readings from Last 3 Encounters: 06/26/22 48.62 kg/m 06/11/22 44.64 kg/m 10/17/21 48.40 kg/m Not at goal of bmi <30 Continue diet and exercise BMI Follow-up includes: nutrition counseling and exercise counseling.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 of containers..01 ThinPrep Vial Sam Garrett MD LAB CYTOLOGY ORDERABLES Ed ited Result - Final [facility] - 01 [facility] 02 from Last 3 Months or Most Recently Relevant to Health Maintenance Insurance [facility] Address: [place] [address] [facility]/PPO Address: [address] [place] [address] [facility] Address: [place] [address] Advance Directives For more information, please contact: [phone] * Full Code (Latest Code Status on File) Date Activated Date Inactivated Comments 07/14/2022 7:59 AM 07/15/2022 4:48 AM * Full Code Date Activated Date Inactivated Comments 07/22/2019 12:50 PM 07/22/2019 6:14 PM * Full Code Date Activated Date Inactivated Comments 07/22/2019 12:50 PM 07/22/2019 12:50 PM * Full Code Date Activated Date Inactivated Comments 12/29/2018 10:25 AM 12/31/2018 8:[address] Repairer Relationship Specialty Start Date End Date Ethan Severino MD PCP - General Family Medicine 06/26/22 Dominick Cardozo MD Consulting Physician Nephrology 12/31/18
--- OUTSIDE RECORDS SUMMARY | 2025-01-15 17:36 | XMS_ITS | Clinical Summary ---
Author Organization [facility] Address [address] [facility], [place] [address] Phone Care Team Providers Care Minister Helper Name Role Phone Ethan Severino MD Primary Care Provider [phone] Allergies Active Allergy Reactions Criticality Noted Date Comments Amoxicillin-Pot Clavulanate Hives 12/02/19 18 Black [place] Pollen Allergy Skin Test Shortness of Breath High 10/04/2018 Iodine Other (see Comments),Unknown 08/15/2018 Latex Rash 06/22/2017 Penicillins Hives 06/22/2017 Shellfish Allergy Anaphylaxis 06/22/2017 Wasp Venom Protein Anaphylaxis High 10/04/2018 Medications pregabalin (LYRICA) 50 MG Capsule Take 50 mg by mouth 3 times daily. Active furosemide (LASIX) 20 MG Tablet Take 20 mg by mouth daily. Active ibuprofen (MOTRIN) 600 MG Tablet Take 600 mg by mouth every 8 hours as needed. Active HYDROCHLOROTHIA ZIDE PO Take by mouth. Activ e SUMAtriptan (IMITREX) 50 MG Tablet Take 50 mg by mouth once as needed for Migraine. Use as directed. May repeat dose in 2 hours if headache recurs. Active VENTOLIN HFA 108 (90 Base) MCG/ACT Aerosol Solution 11/28/19 18 Active acetaZOLAMIDE (DIAMOX) 250 MG Tablet Take 1,000 mg by mouth. Active spironolactone (ALDACTONE) 25 MG Tablet spironolactone 25 mg tablet TAKE 1 TABLET BY MOUTH ONCE DAILY 01/02/20 19 Active albuterol (PROVENTIL, VENTOLIN) (2.5 MG/3ML) 0.083% Nebulizer Soln albuterol sulfate 2.5 mg/3 mL (0.083 %) solution for nebulization Active ergocalciferol (VITAMIN D) 08050 UNIT Capsule 06/24/19 Active potassium chloride SA (KLORCON M) 20 MEQ Tablet Controlled Release potassium chloride ER 20 mEq tablet,extended release(part/cryst ) Active fluticasone (FLOVENT HFA) 110 MCG/ACT AerosolIndicati ons:Moderate asthma with acute exacerbation, unspecified whether persistent take 2 Puffs by inhalation 2 times daily. 1 Inhaler 06/27/19 Active Additional Information Patient not taking.Reported on 04/12/2024 montelukast (SINGULAIR) 10 MG TabletIndicatio ns:Moderate asthma with acute exacerbation, unspecified whether persistent Take 1 Tab by mouth every evening. 30 Tab 06/27/19 Active Additional Information Patient not taking.Reported on 04/12/2024 lisinopril (PRINIVIL, ZESTRIL) 10 MG Tablet 12/12/19 Active Progesterone 200 MG Capsule TAKE 1 CAPSULE BY MOUTH AT BEDTIME FOR 12 DAYS 02/07/20 23 Active aspirin 325 MG Tablet Take 325 mg by mouth daily. Active Active Problems Problem Noted Date Diagnosed Date Class 3 severe obesity due t o excess calories with serious comorbidity and body mass index (BMI) of 50.0 to 59.9 in adult 07/15/2019 Overview (01/13/2023): Last Assessment & Plan: Wt Readings from Last 3 Encounters: 11/29/22 (!) 148.8 kg (328 lb 1.6 oz) 10/16/22 (!) 142.9 kg (315 lb 1.6 oz) 08/08/22 (!) 144.1 kg (317 lb 9.6 oz) BMI Readings from Last 3 Encounters: 11/29/22 51.39 kg/m 10/16/22 49.34 kg/m 08/08/22 49.73 kg/m Not at goal of bmi <30 Continue diet and exercise BMI Follow-up includes: nutrition counseling and exercise counseling. Neuropathy 10/04/2018 Tobacco user 10/04/2018 Asthma 04/08/2013 Overview (01/13/2023): ASTHMA NOS Hypertension 04/08/2013 Overview (01/13/2023): HYPERTENSION NOS Last Assessment & Plan: BP [...] every day, lasix 40 mg every day Immunizations Immunization Administration Dates Next Due Covid-19, Mrna, Lnp-s, Pf, 3 0 Mcg/0.3 Ml Dose (Globevestor) 07/13/2020 Influenza Vaccine, Quadrivalent, PF 04/07/2020,1 05/13/2017,04/17/2017 TDAP Vaccine 10/20/2010 Social History Tobacco Use Types Packs/Day Years Used Date Smoking Tobacco: Every Day Cigarettes Smokeless Tobacco: Never Tobacco Cessation:Ready to Q uit: Not Asked; Counseling Given: Not Answered Comments:5 cigarettes a day Alcohol Use Standard Drinks/Week Comments No 0 (1 standard drink = 0.6 oz pur e alcohol) Sexually Active Control Partners Comments Not Currently Comments No Sex and Gender Information Value Date Recorded Sex Assigned at Not on file Legal Sex Female 8:32 PM CDT Gender Identity Not on file Sexual Orientation Not on file Last Filed Vital Signs Vital Sign Reading Time Taken Comments Blood Pressure 126/70 04/12/2024 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 Pulse 71 04/12/2024 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 Temperature 36.1 C (97 F) 04/12/2024 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 Respiratory Rate 24 04/12/2024 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 Oxygen Saturation 99% 04/12/2024 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 Inhaled Oxygen Concentration - - Weight 138.8 kg (306 lb) 06/27/2019 5:07 PM 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 Height 170.2 cm (5' 7) 01/30/2019 5:22 PM CDT Body Mass Index 47.93 01/30/2019 5:22 PM CDT Plan of Treatment Health Maintenance Due Date Last Done Comments Hepatitis C Virus (HCV) Screening 1980 Hepatitis B Immunization (1 of 3 - 19+ 3-dose series) 02/13/1999 Pneumococcal Immunization Combined (1 of 2 - PCV) 02/13/1999 Pap Smear 02/13/2001 Human Papillomavirus (HPV) Immunization (1 - 3-dose SCDM series) 02/13/2007 Cervical Cancer Screening (CCS) 02/13/2010 HPV/Cotest 02/13/2010 Td Immunization Every 10 Yea rs (Adults With 1 Tdap) 10/20/2020 10/20/2010 Influenza Immunization (#1) 2025 12/06/2019, 03/13/2018, 04/17/2017 SARS-COV-2 Immunization ( season) 2025 07/13/2020 Mammogram 03/28/2025 03/28/2024, 05/17/2023 Respiratory Syncytial Virus (RSV) Immunization (Adult) (1 - 1-dose 75+ series) 02/13/2055 DTaP/Tdap/Td Immunization Discontinued 10/20/2010 Discussion re Starting/Frequency of Mammograms Completed 03/28/2024, 06/08/2023, 05/17/2023 Meningococcal Immunization (ACWY) Aged Out No longer eligible based on patient's age to complete this topic Rotavirus Immunization Aged Out No lo nger eligible based on patient's age to complete this topic Insurance [facility] Care Teams Minister Helper Relationship Specialty Start Date End Date Ethan Severino MD [address] [place] [address] [address] MAYO [address] [place] [id number] PCP - General Test Center Administrator 02/16/23
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
== END 2025-01-15 18:07 | disposition home or self-care (01) ==
PROVIDERS: Emergency Provider Nurse Practitioner; PCP Family Medicine
DX: S70.11XA Contusion of right thigh, initial encounter (principal); S80.11XA Contusion of right lower leg, initial encounter; W22.8XXA Striking against or struck by other objects, initial encounter; F17.210 Nicotine dependence, cigarettes, uncomplicated; I10 Essential (primary) hypertension; J45.909 Unspecified asthma, uncomplicated; G62.9 Polyneuropathy, unspecified; Z85.820 Personal history of malignant melanoma of skin
CPT/HCPCS: 99212; G0463